=== PATIENT | female | born 1960 | race Caucasian/White ===

== ENCOUNTER 2020-02-24 12:43 | Outpatient (REF) | payer OTHER, SELFPAY ==
--- NOTE | 2020-02-24 | MM_ITS ---
EXAMINATION: BONE DENSITOMETRY CLINICAL INDICATION: Screening for osteoporosis. COMPARISON: None (current study represents initial baseline exam). TECHNIQUE: Using a [employer] DXA System (software version: 13.1) manufactured by [employer], dual-energy x-ray absorptiometry was performed of the lumbar spine and left hip. The images are of good technical quality. Summary results are attached. FINDINGS: AP SPINE L1-L4: BMD 0.853 g/cm2, Z-score -1.5, T-score -2.7, osteoporosis. LEFT FEMUR, NECK: BMD 0.792 g/cm2, Z-score -0.5, T-score -1.8, osteopenia. LEFT FEMUR, TOTAL: BMD 0.932 g/cm2, Z-score 0.4, T-score -0.6, normal. IDENTIFIED RISK FACTORS: Menopause, glucocorticoids (chronic). HISTORY OF FRACTURE: None listed. MEDICATIONS: Vitamin D. MM/XR DEXA axial skeleton IMPRESSION: 1. DIAGNOSIS: Osteoporosis based on the lowest T-score value of -2.7 in the lumbar spine applying World Health Organization criteria. 2. 10-YEAR FRACTURE RISK PREDICTION, FRAX: Major osteoporotic fracture (clinical spine, forearm, hip or shoulder) 7.8%. Hip fracture 1.0%. 3. Treatment Recommendations: NOF guidelines recommend consideration for treatment in postmenopausal women and men age 50 and older presenting with the following: -A hip or vertebral (clinical or morphometric) fracture. -T-score less than or equal to -2.5 at the femoral neck or spine after appropriate evaluation to exclude secondary causes. -Low bone mass at the hip or spine and a 10-year fracture probability by FRAX of greater than or equal to 3% for hip fracture or greater than or equal to 20% for major osteoporotic fracture based on the [place] adapted WHO algorithm. 4. Other Recommendations: All treatment decisions require clinical judgment and consideration of individual patient factors, including patient preferences, comorbidities, previous drug use, risk factors not captured in the FRAX model (e.g. frailty, falls, vitamin D deficiency, increased bone turnover, interval significant decline in bone density) and possible under or overestimation of fracture risk by FRAX. Additional medical evaluation for secondary cause of low bone mineral density may be appropriate. FUTURE SCAN RECOMMENDATION: People with diagnosed cases of osteoporosis or at high risk for fracture should have regular bone mineral density tests. For patients eligible for Medicare, routine testing is allowed once every 2 years. The testing frequency can be increased to one year for patients who have rapidly progressing disease, those who are receiving or discontinuing medical therapy to restore bone mass, or have additional risk factors.
--- NOTE | 2020-02-24 12:49 | MM_ITS ---
EXAMINATION: MM DIAGNOSTIC DIGITAL MAMMOGRAPHY, BILATERAL CLINICAL INFORMATION: Left breast invasive ductal cancer with positive sentinel lymph nodes, status post lumpectomy 04/10/2019. First breast imaging since surgery. Due for yearly. COMPARISON: Mammography: 04/10/2019, 03/28/2019, 03/25/2019, 03/08/2019, 03/02/2018, 07/29/2016, 02/03/2015 TECHNIQUE: Digital mammography is performed in craniocaudal and mediolateral oblique views along with computer-aided detection (CAD). Additional magnification left CC and magnification left LM views are obtained. FINDINGS: The breasts are heterogeneously dense, which may obscure small masses (ACR BI-RADS breast composition Category c). There are postsurgical changes left breast with minor reduced breast size, smooth uniform skin thickening, and surgical clips. The remainder of the left breast is similar to prior studies. No significant changes. The right breast again has nodularity central and outer aspect with bulky peripheral calcification suggesting degenerating fibroadenomas. No significant changes. Results are provided to the patient at time of visit by the technologist. MM/MM diagnostic mammo BI IMPRESSION: 1. Left: Post therapy changes. Otherwise no significant change. 2. Right: No significant changes from prior study. ASSESSMENT: BI-RADS 2: Benign RECOMMENDATION: Annual bilateral mammography. This patient's information was entered into a reminder system with a target due date for their next mammogram.
== END 2020-02-24 12:44 | disposition home or self-care (01) ==
LOC: HO.MAMMO 12:43
PROVIDERS: PCP Internal Medicine; Visit Provider Surgery
DX: C50.912 Malignant neoplasm of unspecified site of left female breast (principal); Z13.820 Encounter for screening for osteoporosis
CPT/HCPCS: 77066; 77080

== ENCOUNTER → 2020-05-11 09:09 | Outpatient (BNVA) | payer OTHER, SELFPAY | PROVIDERS: PCP Internal Medicine; Visit Provider Surgery ==

== ENCOUNTER → 2020-09-16 09:32 | Outpatient (BNVA) | payer OTHER, SELFPAY | PROVIDERS: PCP Internal Medicine; Referring Provider Internal Medicine; Visit Provider Surgery ==

== ENCOUNTER → 2020-12-07 10:07 | Outpatient (BNVA) | payer OTHER, SELFPAY | PROVIDERS: PCP Internal Medicine; Visit Provider Surgery ==

== ENCOUNTER 2021-02-25 12:19 | Outpatient (REF) | payer OTHER, SELFPAY ==
--- NOTE | ~2021-02-25 | MM_ITS ---
EXAMINATION: MM DIAGNOSTIC DIGITAL BREAST TOMOSYNTHESIS, BILATERAL CLINICAL INFORMATION: Invasive ductal cancer left breast status post lumpectomy 04/10/2019. Due for yearly. COMPARISON: Mammography: 02/24/2020, 04/10/2019, 03/28/2019, 03/25/2019, 03/08/2019, 03/02/2018 TECHNIQUE: Digital breast tomosynthesis is performed in both the craniocaudal and mediolateral oblique views along with computer-aided detection (CAD). Synthesized 2D images are generated from the tomosynthesis. Additional magnification left CC and magnification left LM views are obtained. FINDINGS: The breasts are heterogeneously dense, which may obscure small masses (ACR BI-RADS breast composition Category c). There are post therapy changes left breast with minor scarring and surgical clips. The smooth skin thickening is decreased from prior exam 02/24/2020. Neither breast shows significant mass or architectural abnormality or abnormal calcifications. The right breast again has fibroadenomatous with associated coarse calcification mid 12:00 and mid upper outer quadrants, respectively. No significant changes. Results are provided to the patient at time of visit by the technologist. MM/MM tomosynthesis diagnostic BI IMPRESSION: No mammographic evidence of malignancy. Post therapy changes left breast. ASSESSMENT: BI-RADS 2: Benign RECOMMENDATION: Annual bilateral mammography. This patient's information was entered into a reminder system with a target due date for their next mammogram.
== END 2021-02-25 12:20 | disposition home or self-care (01) ==
LOC: HO.MAMMO 12:19
PROVIDERS: PCP Internal Medicine; Visit Provider Surgery
DX: C50.912 Malignant neoplasm of unspecified site of left female breast (principal)
CPT/HCPCS: 77062; 77066

== ENCOUNTER → 2021-03-08 10:43 | Outpatient (BNVA) | payer OTHER, SELFPAY | PROVIDERS: PCP Internal Medicine; Referring Provider Internal Medicine; Visit Provider Surgery ==

== ENCOUNTER 2021-03-23 11:35 | Outpatient (REF) | payer OTHER, SELFPAY ==
[2021-03-23 12:19] LABS: Blood Urea Nitrogen 15 mg/dL (9-16); Estimated Glomerular Filt Rate > 60
== END 2021-03-23 11:36 | disposition home or self-care (01) ==
LOC: HO.MRI 11:35
PROVIDERS: PCP Internal Medicine; Visit Provider Surgery
DX: C50.912 Malignant neoplasm of unspecified site of left female breast (principal); R92.2 Inconclusive mammogram
CPT/HCPCS: 36415; 82565; 84520

== ENCOUNTER 2021-05-03 09:06 | Outpatient (REF) | payer OTHER, SELFPAY ==
[2021-05-03 09:30] LABS: MANUAL DIFF FLAG NO
[2021-05-03 09:41] LABS: Basophils Percent Auto 0.8 % (0-2); Eosinophils Absolute Auto 0.3 X10*3/uL (0.0-0.4); Eosinophils Percent Auto 5.5 % (0-4); Hematocrit 41.2 % (37.0-47.0); Hemoglobin 14.3 g/dl (12.0-16.0); Imm Gran Abs Auto 0.02 X10*3/uL (0.00-0.03); Imm Gran Pct Auto 0.4 % (0.0-0.4); Lymphocytes Absolute Auto 1.4 X10*3/uL (1.2-4.9); Lymphocytes Percent Auto 29.2 % (20-40); Mean Corpuscular HGB Conc 34.7 g/dl (31.0-35.0); Mean Corpuscular Hemoglobin 29.2 pg (27.0-33.0); Mean Corpuscular Volume 84.1 fL (80.0-98.0); Mean Platelet Volume 10.8 fL (9.4-12.3); Monocytes Absolute Auto 0.4 X10*3/uL (0.1-1.2); Monocytes Percent Auto 7.6 % (2-11); Neutrophils Absolute Auto 2.7 x10*3/uL (2.0-8.3); Neutrophils Percent Auto 56.5 % (45-73); Platelet Count 193 X10*3/uL (160-400); Red Cell Distribution Width 12.3 % (11.0-16.0); White Blood Count 4.8 X10*3/uL (4.8-10.8)
[2021-05-03 09:43] LABS: Estimated Average Glucose 189 mg/dL; Hemoglobin A1c % 8.2 %
[2021-05-03 10:15] LABS: Alanine Aminotransferase 45 U/L (0-31); Albumin Level 4.3 g/dL (3.5-5.0); Alkaline Phosphatase 105 U/L (39-117); Anion Gap 12 (12-20); Aspartate Amino Transferase 29 U/L (5-31); Bilirubin Total 1.4 mg/dL (0.0-1.0); Blood Urea Nitrogen 10 mg/dL (9-16); Calcium 10.2 mg/dL (8.4-10.2); Carbon Dioxide 29 mmol/L (22-29); Chloride 103 mmol/L (96-108); Cholesterol 173 mg/dL; Estimated Glomerular Filt Rate > 60; Glucose Fasting 185 mg/dL (60-99); HDL Cholesterol 47 mg/dL; LDL Cholesterol Calculated 100 mg/dl; Potassium 4.7 mmol/L (3.3-5.1); Sodium 139 mmol/L (135-145); Total Protein 6.6 g/dL (6.5-8.0); Triglycerides 134 mg/dL
[2021-05-03 10:41] LABS: Appearance Urine CLEAR; Color Urine YELLOW; Glucose Urine UA NEG (NEG); Leukocyte Esterase Urine NEG (NEG); Nitrite Urine NEG (NEG); PH 6.5 (5.0-8.0); Urine Blood NEG (NEG); Urine Ketones NEG (NEG); Urine Protein TRACE MG/DL (NEG-TRACE)
[2021-05-03 16:22] LABS: Creatinine Urine 217.25 mg/dL; Microalbum/Creatinine Ratio Ur 24.8 ug/mg cr
== END 2021-05-03 09:07 | disposition home or self-care (01) ==
LOC: HO.LAB 09:06
PROVIDERS: PCP Internal Medicine; Visit Provider Internal Medicine
DX: E11.9 Type 2 diabetes mellitus without complications (principal); I10 Essential (primary) hypertension; E78.00 Pure hypercholesterolemia, unspecified; Z86.16 Personal history of COVID-19
CPT/HCPCS: 36415; 80053; 80061; 81003; 82043; 83036; 85025

== ENCOUNTER → 2021-06-14 09:58 | Outpatient (BNVA) | payer OTHER, SELFPAY | PROVIDERS: PCP Internal Medicine; Referring Provider Internal Medicine; Visit Provider Surgery | DX: C50.912 Malignant neoplasm of unspecified site of left female breast (principal); R92.2 Inconclusive mammogram; Z79.899 Other long term (current) drug therapy | CPT/HCPCS: 99212 ==

== ENCOUNTER 2021-09-02 06:51 | Day surgery (SDC) | payer OTHER, SELFPAY ==
[2021-08-29 13:51] VITALS: BMI 26.2
--- NOTE | 2021-09-01 09:47 | HO.ANESPROP2 ---
Documented by User: Vanessa Hunt NP 09/01/21 09:48 HPI - Anesthesia Eval Consult details Narrative: 60yo F for Colonoscopy PMFSH Active Problems Active Problems: All Active Problems (Updated 08/29/21 @ 13:48 by Janel Hazel, JOSE) Dense breast tissue on mammogram (Acute) Invasive ductal carcinoma of left breast (Acute) Past Medical History Medical History Diabetes Hypertension Invasive ductal carcinoma of left breast Family History Family History Father HTN (hypertension) Diabetes mellitus Mother Diabetes mellitus HTN (hypertension) Surgical History Surgical History History of ERCP History of tubal ligation Hx of colonoscopy Hx of gallstones Hx of lumpectomy Social History Social History Patient Tobacco Use Status: Never used Tobacco Use of substances other than those prescribed or required for medical reasons: No Are you DNR?: No Advance Directives: No Advance Directives Information Provided: Yes Meds Allergies Allergy/AdvReac Type Severity Reaction Status Date / Time No Known Allergies Allergy Unverified 06/14/21 10:20 [No Known Allergies*] Home Medications Medication Instructions Recorded Confirmed Last Taken Type amlodipine 5 mg tablet 5 mg PO DAILY 05/11/20 09/02/21 09/02/21 History anastrozole 1 mg tablet 1 mg PO DAILY 05/11/20 08/29/21 Unknown History dulaglutide 1.5 mg/0.5 mL mg subcut 05/11/20 06/14/21 Unknown History subcutaneous pen injector glipizide 10 mg tablet, extended 10 mg PO BID 05/11/20 08/29/21 Unknown History release 24 hr lisinopril 20 mg tablet 20 mg PO DAILY 05/11/20 08/29/21 Unknown History Exam Exam Date and Time: September 01, 2021 0947 Height,Weight and Vital Signs: Height 5 ft 2.5 in Weight 66.224 kg Pertinent Lab Results Pertinent Lab Results: Laboratory Tests 05/03/21 05/03/21 09:29 09:29 WBC 4.8 Hgb 14.3 Hct 41.2 Plt Count 193 Sodium 139 Potassium 4.7 Chloride 103 Carbon Dioxide 29 BUN 10 Creatinine 0.80 Assessment and Plan Assessment Anesthesia Assessment: Chart Reviewed Documented by User: Mercedes Thakkar MD 09/02/21 09:03 [facility] Past Medical History Medical History Diabetes Hypertension Invasive ductal carcinoma of left breast Family History Family History Father HTN (hypertension) Diabetes mellitus Mother Diabetes mellitus HTN (hypertension) Family history of problems with anesthesia: No Surgical History Surgical History History of ERCP History of tubal ligation Hx of colonoscopy Hx of gallstones Hx of lumpectomy History of Problems with Anesthesia: No Social History Social History Patient Tobacco Use Status: Never used Tobacco Use of substances other than those prescribed or required for medical reasons: No Are you DNR?: No Advance Directives: No Advance Directives Information Provided: Yes Meds Allergies Allergy/AdvReac Type Severity Reaction Status Date / Time No Known Allergies Allergy Unverified 06/14/21 10:20 [No Known Allergies*] Home Medications Medication Instructions Recorded Confirmed Last Taken Type amlodipine 5 mg tablet 5 mg PO DAILY 05/11/20 09/02/21 09/02/21 History anastrozole 1 mg tablet 1 mg PO DAILY 05/11/20 08/29/21 Unknown History dulaglutide 1.5 mg/0.5 mL mg subcut 05/11/20 06/14/21 Unknown History subcutaneous pen injector glipizide 10 mg tablet, extended 10 mg PO BID 05/11/20 08/29/21 Unknown History release 24 hr lisinopril 20 mg tablet 20 mg PO DAILY 05/11/20 08/29/21 Unknown History Exam Airway Mallampati Class: II TM Dist: >3cm Neck ROM: Full Assessment and Plan Assessment Anesthesia Assessment: Anesthesia Plan Discussed Final Anesthetic Review Family History of Problems with Anesthesia: No History of Problems with Anesthesia: No NPO: Yes ASA Class: II Final Preanesthetic Review: No Changes in Pt Med Stat, Meds/Allgs Chart Reviewed, Consent Obtained/Reviewed and Anes Risks/Benef Reviewed Patient Risk: Low Procedure Risk: Low Anesthetic Plan Anesthetic Plan: MAC: Disposition: Standard PACU
[2021-09-02 08:22] VITALS: BP 144/77; PULSE 67; RESP 18; TEMP 36.4; O2SAT 99; BMI 26.1
[2021-09-02] MEDS: Lactated Ringers 1,000 ML 100 ML IVCONT (08:32)
[2021-09-02 08:51] LABS: Glucose, Whole Blood 184 mg/dL (60-115)
--- NOTE | 2021-09-02 09:19 | MHC.SHP ---
Pre-Procedural Eval Section A Date of Service: 09/02/21 Section B Chief Complaint: screening Details of Present Illness: see H&P no changes Relevant Family History (Specify if Yes): No Relevant Social History: None Present Medications: see Short Stay Collaborative assessment Medical History: No relevant PMH History of Previous Operations: No relevant previous surgery Allergies: Allergies Allergy/AdvReac Type Severity Reaction Status Date / Time No Known Allergies Allergy Unverified 06/14/21 10:20 [No Known Allergies*] Review of Systems Sugical H&P ROS: Negative: Constitution, Cardiovascular, Respiratory, Neurological, Psychiatric, Hem-Onc, Allergic/Immunologic, Gastrointestinal, Genitourinary, Musculoskeletal, Integumentary, Endocrine and Eyes/Ears/Nose/Throat Plan Diagnosis/Plan: Unchanged I have reviewed the history and physical and performed a pertinent physical examination on my patient. No changes have occurred unless specified.
[2021-09-02 10:04] VITALS: BP 85/37; PULSE 78; RESP 16; TEMP 36.4; O2SAT 97
[2021-09-02 10:09] VITALS: BP 89/47
--- NOTE | 2021-09-02 10:10 | P.BOP_ITS ---
Brief Operative Note Date of Service: 09/02/21 Pre-op diagnosis: screening Post-op diagnosis: same Procedure: colonoscopy Surgeon: Larry Mota Anesthesia: MAC Was an Hl7 Interface Developer used for this Procedure?: No Estimated blood loss (mL): 0 Pathology: other Condition: stable Disposition: PACU
[2021-09-02 10:14] VITALS: BP 97/51
[2021-09-02 10:19] VITALS: BP 107/53; PULSE 71; RESP 16; O2SAT 97
[2021-09-02 10:34] VITALS: BP 122/66; PULSE 63; RESP 16; TEMP 36.7; O2SAT 99
--- NOTE | 2021-09-02 16:54 | OP_ITS ---
SURGEON: Larry Mota MD INDICATIONS: Colon cancer screening. PREOPERATIVE DIAGNOSIS: POSTOPERATIVE DIAGNOSIS: PROCEDURE PERFORMED: Colonoscopy to the terminal ileum with snare polypectomy. ESTIMATED BLOOD LOSS: COMPLICATIONS: ANESTHESIA: ASSISTANTS: SPECIMENS: MEDICATIONS: Monitored anesthesia care. DESCRIPTION OF PROCEDURE: History and physical were performed. The risks and benefits of the procedure were explained to the patient. Informed consent was obtained. The patient was placed in left lateral decubitus position. A digital rectal exam was performed and was found to be normal. The Olympus pediatric video colonoscope was introduced into the rectum and advanced to the cecum without difficulty. The cecum was identified by transillumination, palpation, and identification of ileocecal valve. Examination was performed. The scope was removed. She tolerated the procedure well and was returned to recovery area in stable condition. FINDINGS: The terminal ileum was examined and appeared normal. The visualized colonic mucosa was within normal limits without evidence of masses or ulcers. Three polyps were identified and removed with a snare, all measured less than 10 mm. Two were at 20 cm. The 2nd polyp could not be recovered. The other one was at 70 cm. There was extensive diverticulosis. There was moderate amount of liquid and formed stool left limiting the sensitivity examination for detection of small polyps. Retroflexed examination showed small internal hemorrhoids. IMPRESSION: Colon polyps. RECOMMENDATION: Follow up the biopsy results. MD JASPER Tse/JUAN DANIEL / [id number]
== END 2021-09-02 11:10 | disposition home or self-care (01) ==
PROVIDERS: PCP Internal Medicine; Visit Provider Internal Medicine Gastroenterology
PROC: 0DJD8ZZ Inspection of Lower Intestinal Tract, Via Natural or Artificial Opening Endoscopic (ICD-10-PCS; CPT 45378; principal; 2021-09-02 09:00)
DX: Z12.11 Encounter for screening for malignant neoplasm of colon (principal); D12.4 Benign neoplasm of descending colon; K63.5 Polyp of colon; K57.30 Diverticulosis of large intestine without perforation or abscess without bleeding; K64.8 Other hemorrhoids; C50.912 Malignant neoplasm of unspecified site of left female breast; Z79.811 Long term (current) use of aromatase inhibitors; I10 Essential (primary) hypertension; E11.9 Type 2 diabetes mellitus without complications; Z79.84 Long term (current) use of oral hypoglycemic drugs; Z79.899 Other long term (current) drug therapy
CPT/HCPCS: 45385; 82947; 88305

== ENCOUNTER 2022-03-09 12:52 | Outpatient (REF) | payer OTHER, SELFPAY ==
--- NOTE | ~2022-03-09 | MM_ITS ---
EXAMINATION: MM DIAGNOSTIC DIGITAL BREAST TOMOSYNTHESIS, BILATERAL CLINICAL INFORMATION: Left lumpectomy for IDC 04/10/2019. Due for yearly. COMPARISON: Mammography: 02/25/2021, 02/24/2020, 03/28/2019, 03/08/2019 TECHNIQUE: Digital breast tomosynthesis is performed in both the craniocaudal and mediolateral oblique views along with computer-aided detection (CAD). Synthesized 2D images are generated from the tomosynthesis. Additional magnification left CC and magnification left ML views are provided. FINDINGS: The breasts are heterogeneously dense, which may obscure small masses (ACR BI-RADS breast composition Category c). Parenchymal pattern is similar to prior exams and there is no interval developing density or architectural abnormality or significant mass. Left breast has post therapy changes with scarring and surgical clips anterior medial breast. Right breast again has scattered stable asymmetries and benign grouped coarse calcifications central upper and upper outer quadrant. The axilla are unremarkable. No significant changes. Results are provided to the patient at time of visit by the technologist. MM/MM tomosynthesis diagnostic BI IMPRESSION: -No mammographic evidence of malignancy. -Post therapy changes left breast. ASSESSMENT: BI-RADS 2: Benign RECOMMENDATION: Routine annual mammography screening. This patient's information was entered into a reminder system with a target due date for their next mammogram.
== END 2022-03-09 12:53 | disposition home or self-care (01) ==
LOC: HO.MAMMO 12:52
PROVIDERS: PCP Internal Medicine; Visit Provider Internal Medicine
DX: C50.912 Malignant neoplasm of unspecified site of left female breast (principal)
CPT/HCPCS: 77062; 77066

== ENCOUNTER 2022-05-05 08:36 | Outpatient (REF) | payer OTHER, SELFPAY ==
[2022-05-05 09:05] LABS: Estimated Average Glucose 289 mg/dL; Hemoglobin A1c % 11.7 %
[2022-05-05 09:23] LABS: Alanine Aminotransferase 122 U/L (0-31); Albumin Level 4.3 g/dL (3.5-5.0); Alkaline Phosphatase 120 U/L (39-117); Anion Gap 15 (12-20); Aspartate Amino Transferase 84 U/L (5-31); Bilirubin Total 1.3 mg/dL (0.0-1.0); Blood Urea Nitrogen 12 mg/dL (9-16); Calcium 9.8 mg/dL (8.4-10.2); Carbon Dioxide 26 mmol/L (22-29); Chloride 103 mmol/L (96-108); Estimated Glomerular Filt Rate > 60; Glucose Random 310 mg/dL (60-115); Potassium 4.9 mmol/L (3.3-5.1); Sodium 139 mmol/L (135-145)
[2022-05-05 11:09] LABS: Creatinine Urine 93.78 mg/dL; Microalbum/Creatinine Ratio Ur 27.7 ug/mg cr
== END 2022-05-05 08:37 | disposition home or self-care (01) ==
LOC: HO.LAB 08:36
PROVIDERS: PCP Internal Medicine; Visit Provider Internal Medicine
DX: E11.9 Type 2 diabetes mellitus without complications (principal); I10 Essential (primary) hypertension
CPT/HCPCS: 36415; 80053; 82043; 83036

== ENCOUNTER 2022-07-26 07:45 | Outpatient (REF) | payer OTHER, SELFPAY ==
--- NOTE | ~2022-07-26 | US_ITS ---
EXAMINATION: US ABDOMEN COMPLETE CLINICAL INFORMATION: Elevated liver enzymes. COMPARISON: CT abdomen and pelvis 04/01/2019. Ultrasound renal 04/01/2019 and 03/29/2019. TECHNIQUE: Real-time imaging of the abdominal viscera. FINDINGS: PANCREAS: Normal. ABDOMINAL AORTA: There is mild distal aortic atherosclerosis. No evidence of aneurysm. INFERIOR VENA CAVA: Visualized portions are normal. LIVER: The liver is normal in size. The liver contour is normal. There is increased liver echogenicity. No focal hepatic lesion. There is no intrahepatic biliary duct dilatation seen. GALLBLADDER: Surgically absent. COMMON BILE DUCT: Normal in caliber measuring 0.8 cm in diameter. RIGHT KIDNEY: There are numerous echogenic stones with the largest stone in upper pole measuring 1.2 x 1.0 x 0.8 cm. There is no caliectasis or hydronephrosis. There is echogenic lesion in the upper midpole likely angiomyolipoma measuring 0.4 x 0.4 x 0.3 cm. The kidney measures 12.3 cm in maximum dimension. LEFT KIDNEY: There are numerous echogenic stones the largest in the upper pole measuring 0.4 x 0.4 x 0.3 cm. There is an anechoic lesion with calcification in lower pole measuring 1.4 x 1.4 x 1.2 cm suggestive of complex cyst. No hydronephrosis. The kidney measures 11.7 cm in maximum dimension. SPLEEN: Normal. The spleen measures 9.1 cm in maximum dimension. FREE FLUID: None. US/US abdomen complete IMPRESSION: Bilateral nonobstructive echogenic renal calculi. Bilateral small radiopaque calculi are seen on previous CT abdomen exam 04/01/2019. Complex anechoic cyst with calcification lower pole left kidney and angiomyolipoma upper midpole right kidney.
[2022-07-26 09:42] LABS: MANUAL DIFF FLAG NO
[2022-07-26 09:55] LABS: Basophils Absolute Auto 0.1 X10*3/uL (0.0-0.2); Eosinophils Absolute Auto 0.2 X10*3/uL (0.0-0.4); Eosinophils Percent Auto 3.6 % (0-4); Hematocrit 42.1 % (37.0-47.0); Hemoglobin 14.5 g/dl (12.0-16.0); Imm Gran Abs Auto 0.02 X10*3/uL (0.00-0.03); Imm Gran Pct Auto 0.4 % (0.0-0.4); Lymphocytes Absolute Auto 1.4 X10*3/uL (1.2-4.9); Lymphocytes Percent Auto 28.6 % (20-40); Mean Corpuscular HGB Conc 34.4 g/dl (31.0-35.0); Mean Corpuscular Hemoglobin 29.8 pg (27.0-33.0); Mean Corpuscular Volume 86.4 fL (80.0-98.0); Mean Platelet Volume 10.8 fL (9.4-12.3); Monocytes Absolute Auto 0.4 X10*3/uL (0.1-1.2); Monocytes Percent Auto 7.6 % (2-11); Neutrophils Absolute Auto 2.9 x10*3/uL (2.0-8.3); Neutrophils Percent Auto 58.8 % (45-73); Platelet Count 169 X10*3/uL (160-400); Red Blood Count 4.87 X10*6/uL (4.20-5.50); Red Cell Distribution Width 12.2 % (11.0-16.0)
[2022-07-26 10:18] LABS: Alanine Aminotransferase 129 U/L (0-31); Albumin Level 4.4 g/dL (3.5-5.0); Alkaline Phosphatase 123 U/L (39-117); Anion Gap 15 (12-20); Aspartate Amino Transferase 90 U/L (5-31); Bilirubin Total 1.8 mg/dL (0.0-1.0); Blood Urea Nitrogen 20 mg/dL (9-16); Calcium 9.9 mg/dL (8.4-10.2); Carbon Dioxide 26 mmol/L (22-29); Chloride 105 mmol/L (96-108); Estimated Glomerular Filt Rate > 60; Glucose Random 257 mg/dL (60-115); Potassium 4.2 mmol/L (3.3-5.1); Sodium 142 mmol/L (135-145)
[2022-07-26 10:32] LABS: Estimated Average Glucose 258 mg/dL; Hemoglobin A1c % 10.6 %
== END 2022-07-26 07:46 | disposition home or self-care (01) ==
LOC: HO.US 07:45
PROVIDERS: PCP Internal Medicine; Visit Provider Internal Medicine
DX: I10 Essential (primary) hypertension (principal); E11.9 Type 2 diabetes mellitus without complications; R74.01 Elevation of levels of liver transaminase levels
CPT/HCPCS: 36415; 76700; 80053; 83036; 85025

== ENCOUNTER → 2022-08-08 10:00 | Outpatient (BNVA) | payer OTHER, SELFPAY | PROVIDERS: PCP Internal Medicine; Referring Provider Internal Medicine; Visit Provider Surgery ==

== ENCOUNTER → 2022-08-14 10:36 | Outpatient (BNVA) | payer OTHER, SELFPAY | PROVIDERS: PCP Internal Medicine; Visit Provider Advanced Practice Midwife ==

== ENCOUNTER 2022-12-12 08:40 | Outpatient (REF) | payer OTHER, SELFPAY ==
[2022-12-12 10:27] LABS: Estimated Average Glucose 134 mg/dL; Hemoglobin A1c % 6.3 % (<6.0)
[2022-12-12 11:11] LABS: Alanine Aminotransferase 35 U/L (0-31); Albumin Level 4.3 g/dL (3.5-5.0); Alkaline Phosphatase 100 U/L (39-117); Anion Gap 13 (12-20); Aspartate Amino Transferase 24 U/L (5-31); Bilirubin Total 1.2 mg/dL (0.0-1.0); Blood Urea Nitrogen 11 mg/dL (9-16); Calcium 9.9 mg/dL (8.4-10.2); Carbon Dioxide 27 mmol/L (22-29); Chloride 106 mmol/L (96-108); Estimated Glomerular Filt Rate > 60; Glucose Random 133 mg/dL (60-115); Potassium 3.6 mmol/L (3.3-5.1); Sodium 142 mmol/L (135-145); Total Protein 7.3 g/dL (6.5-8.0)
== END 2022-12-12 08:41 | disposition home or self-care (01) ==
LOC: HO.LAB 08:40
PROVIDERS: PCP Internal Medicine; Visit Provider Internal Medicine
DX: E11.9 Type 2 diabetes mellitus without complications (principal); I10 Essential (primary) hypertension; R79.89 Other specified abnormal findings of blood chemistry
CPT/HCPCS: 36415; 80053; 83036

== ENCOUNTER 2023-03-15 13:12 | Outpatient (REF) | payer OTHER, SELFPAY ==
--- NOTE | ~2023-03-15 | MM_ITS ---
EXAMINATION: MM SCREENING DIGITAL BREAST TOMOSYNTHESIS, BILATERAL CLINICAL INFORMATION: Screening. Asymptomatic. The patient has a history of left breast cancer diagnosed in 2020. COMPARISON: Mammography: This study is compared with prior exams dating back to 2018. TECHNIQUE: Digital breast tomosynthesis is performed in both the craniocaudal and mediolateral oblique views along with computer-aided detection (CAD). Synthesized 2D images are generated from the tomosynthesis. FINDINGS: There are scattered areas of fibroglandular density (ACR BI-RADS breast composition Category b). There are no significant masses, abnormal calcifications, or other abnormalities. There are postsurgical changes in the medial aspect of the left breast. There are coarse, benign calcifications including upper outer quadrant of the right breast. MM/MM tomosynthesis screening BI IMPRESSION: No mammographic evidence of malignancy. ASSESSMENT: BI-RADS BI-RADS 1 - Negative RECOMMENDATION: Routine annual mammography screening. 1 year F/U This examination should not preclude the clinical evaluation of a suspicious palpable abnormality. This patient's information was entered into a reminder system with a target due date for their next mammogram.
== END 2023-03-15 13:13 | disposition home or self-care (01) ==
LOC: HO.MAMMO 13:12
PROVIDERS: PCP Internal Medicine; Visit Provider Internal Medicine
DX: Z12.31 Encounter for screening mammogram for malignant neoplasm of breast (principal)
CPT/HCPCS: 77063; 77067

== ENCOUNTER → 2023-03-15 13:30 | Outpatient (BNV) | payer OTHER, SELFPAY | PROVIDERS: PCP Internal Medicine; Visit Provider Radiology Diagnostic Radiology | DX: Z12.31 Encounter for screening mammogram for malignant neoplasm of breast (principal) | CPT/HCPCS: 77063; 77067 ==

== ENCOUNTER 2023-04-06 08:23 | Outpatient (REF) | payer OTHER, SELFPAY ==
[2023-04-06 08:45] LABS: MANUAL DIFF FLAG NO
[2023-04-06 08:50] LABS: Basophils Absolute Auto 0.1 X10*3/uL (0.0-0.2); Basophils Percent Auto 0.9 % (0-2); Eosinophils Absolute Auto 0.4 X10*3/uL (0.0-0.4); Eosinophils Percent Auto 6.6 % (0-4); Hematocrit 42.2 % (37.0-47.0); Hemoglobin 14.3 g/dl (12.0-16.0); Imm Gran Abs Auto 0.03 X10*3/uL (0.00-0.03); Imm Gran Pct Auto 0.5 % (0.0-0.4); Lymphocytes Absolute Auto 1.6 X10*3/uL (1.2-4.9); Mean Corpuscular HGB Conc 33.9 g/dl (31.0-35.0); Mean Corpuscular Hemoglobin 29.2 pg (27.0-33.0); Mean Corpuscular Volume 86.3 fL (80.0-98.0); Mean Platelet Volume 10.3 fL (9.4-12.3); Monocytes Absolute Auto 0.5 X10*3/uL (0.1-1.2); Monocytes Percent Auto 8.6 % (2-11); Neutrophils Percent Auto 54.4 % (45-73); Platelet Count 208 X10*3/uL (160-400); Red Blood Count 4.89 X10*6/uL (4.20-5.50); Red Cell Distribution Width 12.9 % (11.0-16.0); White Blood Count 5.5 X10*3/uL (4.8-10.8)
[2023-04-06 09:34] LABS: Alanine Aminotransferase 22 U/L (0-31); Albumin Level 4.2 g/dL (3.5-5.0); Alkaline Phosphatase 101 U/L (39-117); Anion Gap 12 (12-20); Aspartate Amino Transferase 16 U/L (5-31); Bilirubin Total 0.8 mg/dL (0.0-1.0); Blood Urea Nitrogen 16 mg/dL (9-16); Calcium 9.7 mg/dL (8.4-10.2); Carbon Dioxide 28 mmol/L (22-29); Chloride 105 mmol/L (96-108); Cholesterol 165 mg/dL (<200); Estimated Glomerular Filt Rate > 60; Glucose Fasting 130 mg/dL (60-99); HDL Cholesterol 49 mg/dL (>40); LDL Cholesterol Calculated 96 mg/dL (<100); Potassium 4.3 mmol/L (3.3-5.1); Sodium 141 mmol/L (135-145); Total Protein 7.4 g/dL (6.5-8.0); Triglycerides 101 mg/dL (<150)
[2023-04-06 11:28] LABS: Creatinine Urine 87.22 mg/dL; Microalbum/Creatinine Ratio Ur 9.1 ug/mg cr (<30)
== END 2023-04-06 08:24 | disposition home or self-care (01) ==
LOC: HO.LAB 08:23
PROVIDERS: PCP Internal Medicine; Visit Provider Internal Medicine
DX: I10 Essential (primary) hypertension (principal); E11.9 Type 2 diabetes mellitus without complications; R79.89 Other specified abnormal findings of blood chemistry
CPT/HCPCS: 36415; 80053; 80061; 82043; 82570; 85025

== ENCOUNTER 2023-04-06 09:13 | Outpatient (AMB) | payer OTHER, SELFPAY ==
--- NOTE | 2023-04-06 09:24 | A.OFFVIS_ITS ---
Intake Vital Signs 3 04/06/23 09:31 Height 5 ft 2.5 in Weight 142 lb BMI 25.6 BP 120/70 Blood Pressure Location Lt brachial Position Sitting Pulse 88 Intake Visit Reasons: overdue breast exam Intake Note: Patient is seen in office for office visit, breast exam. 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 She was diagnosed with infiltrating ductal carcinoma in March 2019 and underwent a left breast lumpectomy with axillary sentinel node biopsy on 04/10/2019, followed by re-excision of the inferior and lateral margins on 04/25/2019.? Pathology revealed a 1.5 cm grade 1 infiltrating ductal carcinoma, ER IN positive, HER2 Shital negative.? Two of 5 left axillary sentinel nodes were positive for metastatic disease.? The inferior lumpectomy resection margin was involved but was clear following re-excision with no residual carcinoma identified.? She was evaluated by Dr. Diego as well as [facility].? Her Oncotype DX score was 20. Although 2/5 axillary nodes were positive for metastatic disease, the addition of chemotherapy was not felt to likely provide much additional benefit.? She underwent radiation therapy followed by endocrine therapy.? She is taking anastrozole and reports no significant side effects with this medication.? She completed radiation therapy in July 2019 and tolerated it well.? Her most recent mammogram of 03/15/2023 revealed no mammographic evidence of malignancy (BI-RADS 1) and yearly mammogram is recommended.? Bilateral breast MRI performed at [facility] 04/22/2021 revealed no MRI evidence of breast malignancy bilaterally. The expected post therapeutic changes were noted in the left breast (BI-RADS 2: Benign ). She denies any new breast symptoms. Her previously scheduled MRI for August 2022 was canceled due to insurance denial. [facility] Medical History Diabetes Hypertension Invasive ductal carcinoma of left breast Surgical History History of tubal ligation Hx of colonoscopy History of ERCP Hx of gallstones Hx of lumpectomy Family History Father HTN (hypertension) Diabetes mellitus Mother Diabetes mellitus HTN (hypertension) Social History Alcohol intake: former Patient Tobacco Use Status: Never used Tobacco Sexual orientation: Straight/Heterosexual Gender identity: Female Review of Systems Const All systems reviewed & are unremarkable except as noted in HPI and below Card Denies chest pain, Denies rapid heart rate and Denies irregular heart rhythm Denies nipple discharge Skin/Breast Denies breast skin changes, Denies breast pain, Denies breast mass, Denies change in breast shape, Denies new lesions, Denies nipple discharge and Denies skin pain Segundo/Lymph Denies lymphadenopathy Physical Exam Const General: cooperative, healthy appearing, comfortable, no acute distress, well developed, alert and awake Orientation/consciousness: patient oriented x3 Neck Neck: Yes no lymphadenopathy, Yes trachea midline, Yes supple and Yes no JVD Chest Other: Left breast: No new skin change, no nipple retraction, no nipple discharge, no palpable mass, no enlarged lymph nodes. Well-healed incision in the upper inner quadrant with this circumareolar component. Minimal radiation changes noted in the skin breast tissue and no new palpable masses appreciated. Well-healed incision in the left axilla is identified. Right breast: No skin change, no nipple retraction, no nipple discharge, no palpable mass, no enlarged lymph nodes Chest/axillae images: 2 1. Well-healed incision, very faint with no palpable mass in the upper inner quadrant left breast. Resp Effort & Inspection: normal respiratory effort, no audible wheezes, no cough and no respiratory distress GI Inspection: Yes normal to inspection Skin General skin exam: no rashes or lesions noted Neuro General: patient oriented x3 Extrem General: Yes no clubbing, cyanosis or edema Assessment & Plan Assessment & Plan (1) Invasive ductal carcinoma of left breast: Code(s): C50.912 - Malignant neoplasm of unspecified site of left female breast (2) Dense breast tissue on mammogram: Code(s): R92.2 - Inconclusive mammogram Qualifiers: Mammographic dense breast tissue type: heterogeneous Laterality: b ilateral Qualified Code(s): R92.333 - Mammographic heterogeneous density, bilateral breasts Plan 62-year-old female patient status post lumpectomy and sentinel node biopsy (04/10/2019 and 04/25/2019) for a left breast 1.5 cm grade 1 infiltrating ductal carcinoma, ER/IN positive, HER2 Shital negative with 2 of 5 axillary lymph nodes with metastatic disease. Her Oncotype was 20 and no adjuvant chemotherapy was felt necessary. She underwent radiation therapy and is currently on anastrozole under the care of Dr. Diego. Her most recent mammogram in 03/15/2023 revealed no mammographic evidence of malignancy (BI-RADS 1). Examination today revealed no suspicious findings in either breast with a well-healed incision in the left breast. There is no evidence of recurrence disease this time. Patient will continue her anastrozole and her follow-up with Dr. Diego. She will follow-up in 6 months, sooner p.r.n.. Coding Level of Care Code Est Pt Level 3 (81320) Diagnoses Invasive ductal carcinoma of left breast C50.912 Heterogeneously dense tissue of both breasts on mammography R92.333 Mammographic dense breast tissue type: heterogeneous Laterality: bilateral
[2023-04-06 09:31] VITALS: BP 120/70; PULSE 88; BMI 25.6
== END 2023-04-06 09:41 | disposition home or self-care (01) ==
PROVIDERS: PCP Internal Medicine; Visit Provider Surgery
DX: C50.912 Malignant neoplasm of unspecified site of left female breast (principal); R92.333 Mammographic heterogeneous density, bilateral breasts
CPT/HCPCS: 99213

== ENCOUNTER 2023-08-22 08:06 | Outpatient (AMB) | payer OTHER, SELFPAY ==
--- NOTE | 2023-08-22 08:13 | A.OFFVIS_ITS ---
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 She is doing well with concerns: Intermittent occasional external irritation of unknown origin, using [id number] topical cream which helps. Attempting to eat a healthy diet with calcium and vitamin D and stays active with exercise. Currently sexually active. Denies any vaginal dryness or irritation. STI testing offered; she declines. Last pap smear; 09/13/2019 neg/neg. History of LEEP 1992. Last mammogram; 2022. Colonoscopy is UTD. Denies any family history of breast, ovarian or colon cancer. Personal history of breast cancer. [facility] Medical History Diabetes Hypertension Invasive ductal carcinoma of left breast Surgical History History of tubal ligation Hx of colonoscopy History of ERCP Hx of gallstones Hx of lumpectomy Family History Father HTN (hypertension) Diabetes mellitus Mother Diabetes mellitus HTN (hypertension) Social History Alcohol intake: former Patient Tobacco Use Status: Never used Tobacco Sexual orientation: Straight/Heterosexual Gender identity: Female Female Reproductive History Menstrual Age of Menarche: 13 control method: permanent sterilization Total pregnancies: 3 Full term: 2 Number of Living Children: 3 Ab spontaneous: 1 Multiple births: 1 Date of last pap smear: 09/25/19 (negative) History of abnormal pap smear: Yes (1992 CIN1) Date of Mammogram: 03/15/23 Review of Systems Const All systems reviewed & are unremarkable except as noted in HPI and below Reports as per HPI Eyes Reports no additional complaints ENT Reports no additional complaints Card Reports no additional complaints Resp Reports no additional complaints GI Reports as per HPI and Reports no additional complaints Reports as per HPI Musc Reports no additional complaints Skin/Breast Reports as per HPI Neuro Reports no additional complaints Psych Reports no additional complaints Endo Reports no additional complaints Segundo/Lymph Reports no additional complaints Aller/Immun Reports no additional complaints Physical Exam Vital Signs: Last Vital Signs BP 122/76 08/22/23 08:15 BMI result Body Mass Index 25.2 Const General: cooperative, healthy appearing, no acute distress, well developed and alert Orientation/consciousness: patient oriented x3 HEENT Head: Yes normal to inspection Eyes General: appearance normal, both eyes and all related structures Neck Neck: Yes normal visual inspection Thyroid: Thyroid normal Chest Other: Left breast scar Chest palpation & inspection: normal inspection of the chest and other (no puckering, dimpling, peau de orange, retraction, discharge, masses) Breast/axilla inspection: normal inspection of the breasts Breast/axilla palpation: normal palpation of the breasts Resp Effort & Inspection: normal respiratory effort GI Inspection: Yes normal to inspection Palpation (GI): Soft to palpation Rectal Exam - Female: deferred General: Yes bladder normal to palpation External Female Exam: normal external appearance and normal appearance of the urethra Speculum Exam - Vagina: normal appearance of the vagina, normal palpation, normal vaginal discharge and vagina atrophic Speculum Exam - Cervix: normal appearance of the cervix and normal palpation Bimanual exam- vagina & uterus: normal bimanual exam, normal palpation, uterine size normal, bladder normal to palpation, normal palpation and non-tender Bimanual Exam- Adnexa, other: no masses Skin General skin exam: no rashes or lesions noted Rashes: no rashes Neuro General: patient oriented x3 Cognition (Neuro): normal cognition Extrem General: Yes normal to inspection Psych Attitude: cooperative Thought process: Normal thought process present Assessment & Plan Assessment & Plan (1) Encounter for well woman exam with routine gynecological exam: Code(s): Z01.419 - Encounter for gynecological examination (general) (routine) without abnormal findings Category: Medical Plan: Discussed: Current recommendations for pap smears per ASCCP guidelines. Breast awareness, periodic self breast exams and yearly mammogram. Maintain a healthy lifestyle, well balanced diet including Calcium 1,200 mg and Vitamin D 600 IU daily, and routine exercise. Vulva concerns, self-help measures, if persistent follow up for evaluation in office. Continue use vaginal lubricants and add Replens if needed. Contact the office with any postmenopausal bleeding. Patient verbalizes understanding and agrees to the plan of care. She was given opportunity to ask questions and all questions were answered to the best of my ability. RTO in 1 year for annual skimmer reverberatory exam. This note is constructed using voice recognition software. While every effort has been made to ensure accuracy, chro errors may have been included. Coding Level of Care Code Est Pt Prev Care 40-64y(52909) Diagnoses Encounter for well woman exam with routine gynecological exam Z01.419
[2023-08-22 08:15] VITALS: BP 122/76; BMI 25.2
== END 2023-08-22 08:51 | disposition home or self-care (01) ==
PROVIDERS: PCP Internal Medicine; Visit Provider Advanced Practice Midwife
DX: Z01.419 Encounter for gynecological examination (general) (routine) without abnormal findings (principal)
CPT/HCPCS: 99396

== ENCOUNTER → 2023-08-22 08:06 | Outpatient (BNVA) | payer OTHER, SELFPAY | PROVIDERS: PCP Internal Medicine; Visit Provider Advanced Practice Midwife ==

== ENCOUNTER 2023-09-20 09:01 | Outpatient (REF) | payer OTHER, SELFPAY ==
[2023-09-20 09:11] LABS: MANUAL DIFF FLAG NO
[2023-09-20 09:45] LABS: Basophils Percent Auto 0.8 % (0-2); Eosinophils Absolute Auto 0.2 X10*3/uL (0.0-0.4); Eosinophils Percent Auto 3.9 % (0-4); Hematocrit 42.4 % (37.0-47.0); Hemoglobin 14.6 g/dl (12.0-16.0); Imm Gran Abs Auto 0.01 X10*3/uL (0.00-0.03); Imm Gran Pct Auto 0.2 % (0.0-0.4); Lymphocytes Absolute Auto 1.3 X10*3/uL (1.2-4.9); Mean Corpuscular HGB Conc 34.4 g/dl (31.0-35.0); Mean Corpuscular Hemoglobin 29.7 pg (27.0-33.0); Mean Corpuscular Volume 86.4 fL (80.0-98.0); Mean Platelet Volume 11.3 fL (9.4-12.3); Monocytes Absolute Auto 0.4 X10*3/uL (0.1-1.2); Monocytes Percent Auto 7.5 % (2-11); Neutrophils Percent Auto 60.6 % (45-73); Platelet Count 171 X10*3/uL (160-400); Red Blood Count 4.91 X10*6/uL (4.20-5.50); White Blood Count 4.9 X10*3/uL (4.8-10.8)
[2023-09-20 09:59] LABS: Estimated Average Glucose 163 mg/dL; Hemoglobin A1c % 7.3 % (<6.0)
[2023-09-20 10:23] LABS: Alanine Aminotransferase 26 U/L (0-31); Albumin Level 4.4 g/dL (3.5-5.0); Alkaline Phosphatase 121 U/L (39-117); Anion Gap 13 (12-20); Aspartate Amino Transferase 22 U/L (5-31); Bilirubin Total 1.6 mg/dL (0.0-1.0); Blood Urea Nitrogen 15 mg/dL (9-16); Calcium 9.7 mg/dL (8.4-10.2); Carbon Dioxide 27 mmol/L (22-29); Chloride 105 mmol/L (96-108); Estimated Glomerular Filt Rate > 60; Glucose Random 163 mg/dL (60-115); Sodium 141 mmol/L (135-145); Total Protein 7.3 g/dL (6.5-8.0)
== END 2023-09-20 09:02 | disposition home or self-care (01) ==
LOC: HO.LAB 09:01
PROVIDERS: PCP Internal Medicine; Visit Provider Internal Medicine
DX: E11.9 Type 2 diabetes mellitus without complications (principal); I10 Essential (primary) hypertension; R94.5 Abnormal results of liver function studies
CPT/HCPCS: 36415; 80053; 83036; 85025

== ENCOUNTER 2023-09-28 08:44 | Outpatient (AMB) | payer OTHER, SELFPAY ==
[2023-09-28 08:45] VITALS: BP 137/66; PULSE 72; BMI 25.6
--- NOTE | 2023-09-28 08:45 | A.OFFVIS_ITS ---
Vital Signs 3 09/28/23 08:45 Height 5 ft 2.5 in Weight 142 lb BMI 25.6 BP 137/66 Blood Pressure Location Rt brachial Position Sitting Pulse 72 Intake Visit Reasons: 6 month f/u breast exam Intake Note: Patient is here for a six month follow-up breast examination. Patient c/o; reports no breast complaints. 03/15/2023-MM Screening Surgical Coordinator Required: No Assistant Family Teacher: Assistant Family Teacher Present (Juanita-RMA) Accompanied by: Self / Same As Patient Allergies No Known Allergies [No Known Allergies*] Allergy (Verified 09/28/23 08:53) Medication List - Last Reconciled 09/28/23 by Evan Urban MD amlodipine 5 mg PO DAILY anastrozole 1 mg PO DAILY dulaglutide mg subcut empagliflozin (Jardiance) 10 mg PO DAILY glipizide ER 10 mg PO BID lisinopril 20 mg PO DAILY HPI Comments Details: 63-year-old female patient, former patient of Dr. Alcantar, seen today for a follow-up breast examination.? She was diagnosed with infiltrating ductal carcinoma in March 2019 and underwent a left breast lumpectomy with axillary sentinel node biopsy on 04/10/2019, followed by re-excision of the inferior and lateral margins on 04/25/2019.? Pathology revealed a 1.5 cm grade 1 infiltrating ductal carcinoma, ER [place] positive, HER2 Shital negative.? Two of 5 left axillary sentinel nodes were positive for metastatic disease.? The inferior lumpectomy resection margin was involved but was clear following re-excision with no residual carcinoma identified.? She was evaluated by Dr. Diego as well as [facility].? Her Oncotype DX score was 20. Although 2/5 axillary nodes were positive for metastatic disease, the addition of chemotherapy was not felt to likely provide much additional benefit.? She underwent radiation therapy followed by endocrine therapy.? She continues to take anastrozole and reports no significant side effects with this medication.? She completed radiation therapy in July 2019 and tolerated it well.? Her most recent mammogram of 03/15/2023 revealed no mammographic evidence of malignancy (BI-RADS 1) and yearly mammogram is recommended.? Bilateral breast MRI performed at [facility] 04/22/2021 revealed no MRI evidence of breast malignancy bilaterally. The expected post therapeutic changes were noted in the left breast (BI-RADS 2: Benign ). She is scheduled for a yearly mammogram on 03/17/2024. She denies any new breast symptoms. [facility] Medical History Diabetes Hypertension Invasive ductal carcinoma of left breast Surgical History History of tubal ligation Hx of colonoscopy History of ERCP Hx of gallstones Hx of lumpectomy Family History Father HTN (hypertension) Diabetes mellitus Mother Diabetes mellitus HTN (hypertension) Social History Alcohol intake: former Patient Tobacco Use Status: Never used Tobacco Sexual orientation: Straight/Heterosexual Gender identity: Female Female Reproductive History Menstrual Age of Menarche: 13 Review of Systems Const All systems reviewed & are unremarkable except as noted in HPI and below Card Denies chest pain, Denies rapid heart rate and Denies irregular heart rhythm Denies nipple discharge Skin/Breast Denies breast skin changes, Denies breast pain, Denies breast mass, Denies change in breast shape, Denies new lesions, Denies nipple discharge and Denies skin pain Segundo/Lymph Denies lymphadenopathy Physical Exam Vital Signs: Last Vital Signs Pulse 72 09/28/23 08:45 BP 137/66 09/28/23 08:45 BMI result Body Mass Index 25.6 Const General: cooperative, healthy appearing, comfortable, no acute distress, well developed, alert and awake Orientation/consciousness: patient oriented x3 Neck Neck: Yes no lymphadenopathy, Yes trachea midline, Yes supple and Yes no JVD Chest Other: Left breast: No new skin change, no nipple retraction, no nipple discharge, no palpable mass, no enlarged lymph nodes. Well-healed incision in the upper inner quadrant with this circumareolar component. Minimal radiation changes noted in the skin breast tissue and no new palpable masses appreciated. Well-healed incision in the left axilla is identified. Right breast: No skin change, no nipple retraction, no nipple discharge, no palpable mass, no enlarged lymph nodes Chest/axillae images: 2 1. Incision left breast Resp Effort & Inspection: normal respiratory effort, no audible wheezes, no cough and no respiratory distress GI Inspection: Yes normal to inspection Skin General skin exam: no rashes or lesions noted Neuro General: patient oriented x3 Extrem General: Yes no clubbing, cyanosis or edema Assessment & Plan Assessment & Plan (1) Invasive ductal carcinoma of left breast: Code(s): C50.912 - Malignant neoplasm of unspecified site of left female breast Category: Medical (2) Dense breast tissue on mammogram: Code(s): R92.2 - Inconclusive mammogram Category: Medical Qualifiers: Mammographic dense breast tissue type: heterogeneous Laterality: b ilateral Qualified Code(s): R92.333 - Mammographic heterogeneous density, bilateral breasts Plan 63-year-old female patient status post lumpectomy and sentinel node biopsy (04/10/2019 and 04/25/2019) for a left breast 1.5 cm grade 1 infiltrating ductal carcinoma, ER/LA positive, HER2 Shital negative with 2 of 5 axillary lymph nodes with metastatic disease. Her Oncotype was 20 and no adjuvant chemotherapy was felt necessary. She underwent radiation therapy and is currently on anastrozole under the care of Dr. Diego. Her most recent mammogram in 03/15/2023 revealed no mammographic evidence of malignancy (BI-RADS 1). Examination today revealed no suspicious findings in either breast with a well-healed incision in the left breast. There is no evidence of recurrence disease this time. Patient will continue her anastrozole and her follow-up with Dr. Diego. She will follow-up in 6 months, sooner p.r.n.. She is scheduled for follow-up mammogram on 03/17/2024. Coding Level of Care Code Est Pt Level 3 (37235) Diagnoses Invasive ductal carcinoma of left breast C50.912 Heterogeneously dense tissue of both breasts on mammography R92.333 Mammographic dense breast tissue type: heterogeneous Laterality: bilateral
== END 2023-09-28 09:10 | disposition home or self-care (01) ==
PROVIDERS: PCP Internal Medicine; Visit Provider Surgery
DX: C50.912 Malignant neoplasm of unspecified site of left female breast (principal); R92.333 Mammographic heterogeneous density, bilateral breasts
CPT/HCPCS: 99213

== ENCOUNTER → 2023-09-28 08:44 | Outpatient (BNVA) | payer OTHER, SELFPAY | PROVIDERS: PCP Internal Medicine; Visit Provider Surgery ==

== ENCOUNTER 2024-02-06 12:12 | Outpatient (REF) | payer OTHER, SELFPAY ==
[2024-02-06 12:42] LABS: MANUAL DIFF FLAG NO
[2024-02-06 12:54] LABS: Basophils Percent Auto 0.7 % (0-2); Eosinophils Absolute Auto 0.1 X10*3/uL (0.0-0.4); Eosinophils Percent Auto 2.5 % (0-4); Hematocrit 42.6 % (37.0-47.0); Hemoglobin 14.7 g/dl (12.0-16.0); Imm Gran Abs Auto 0.02 X10*3/uL (0.00-0.03); Imm Gran Pct Auto 0.4 % (0.0-0.4); Lymphocytes Absolute Auto 1.4 X10*3/uL (1.2-4.9); Lymphocytes Percent Auto 24.1 % (20-40); Mean Corpuscular HGB Conc 34.5 g/dl (31.0-35.0); Mean Corpuscular Hemoglobin 29.6 pg (27.0-33.0); Mean Corpuscular Volume 85.7 fL (80.0-98.0); Mean Platelet Volume 10.7 fL (9.4-12.3); Monocytes Absolute Auto 0.5 X10*3/uL (0.1-1.2); Monocytes Percent Auto 7.9 % (2-11); Neutrophils Absolute Auto 3.7 x10*3/uL (2.0-8.3); Neutrophils Percent Auto 64.4 % (45-73); Platelet Count 179 X10*3/uL (160-400); Red Blood Count 4.97 X10*6/uL (4.20-5.50); Red Cell Distribution Width 13.1 % (11.0-16.0); White Blood Count 5.7 X10*3/uL (4.8-10.8)
[2024-02-06 13:00] LABS: Estimated Average Glucose 157 mg/dL; Hemoglobin A1C 206.0471 umol/L; Hemoglobin A1c % 7.1 % (<6.0); Total Hemoglobin (HGBA1C) 3812.6295 umol/L
[2024-02-06 13:34] LABS: Alanine Aminotransferase 33 U/L (0-31); Albumin Level 4.4 g/dL (3.5-5.0); Alkaline Phosphatase 114 U/L (39-117); Anion Gap 12 (12-20); Aspartate Amino Transferase 25 U/L (5-31); Bilirubin Total 1.2 mg/dL (0.0-1.0); Blood Urea Nitrogen 15 mg/dL (9-16); Calcium 10.2 mg/dL (8.4-10.2); Carbon Dioxide 24 mmol/L (22-29); Chloride 107 mmol/L (96-108); Cholesterol 170 mg/dL (<200); Estimated Glomerular Filt Rate > 60; Glucose Random 127 mg/dL (60-115); HDL Cholesterol 52 mg/dL (>40); LDL Cholesterol Calculated 99 mg/dL (<100); Potassium 3.6 mmol/L (3.3-5.1); Sodium 139 mmol/L (135-145); Total Protein 7.3 g/dL (6.5-8.0); Triglycerides 96 mg/dL (<150)
[2024-02-06 13:52] LABS: Creatinine Urine 352.24 mg/dL; Microalbum/Creatinine Ratio Ur 26.9 ug/mg cr (<30)
== END 2024-02-06 12:13 | disposition home or self-care (01) ==
LOC: HO.LAB 12:12
PROVIDERS: PCP Internal Medicine; Visit Provider Internal Medicine
DX: E11.9 Type 2 diabetes mellitus without complications (principal); I10 Essential (primary) hypertension
CPT/HCPCS: 36415; 80053; 80061; 82043; 82570; 83036; 85025

== ENCOUNTER 2024-03-17 12:34 | Outpatient (REF) | payer OTHER, SELFPAY | END 2024-03-17 12:35 | disposition home or self-care (01) | LOC: HO.MAMMO 12:34 | PROVIDERS: PCP Internal Medicine; Visit Provider Internal Medicine | DX: Z12.31 Encounter for screening mammogram for malignant neoplasm of breast (principal) | CPT/HCPCS: 77063; 77067 ==

== ENCOUNTER → 2024-03-17 13:00 | Outpatient (BNV) | payer OTHER, SELFPAY | PROVIDERS: PCP Internal Medicine; Visit Provider Internal Medicine | DX: Z12.31 Encounter for screening mammogram for malignant neoplasm of breast (principal) | CPT/HCPCS: 77063; 77067 ==

== ENCOUNTER 2024-04-01 08:44 | Outpatient (AMB) | payer OTHER, SELFPAY ==
--- NOTE | 2024-04-01 08:54 | A.OFFVIS_ITS ---
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 Alcantar, seen today for a follow-up breast examination.? She was diagnosed with infiltrating ductal carcinoma in March 2019 and underwent a left breast lumpectomy with axillary sentinel node biopsy on 04/10/2019, followed by re-excision of the inferior and lateral margins on 04/25/2019.? Pathology revealed a 1.5 cm grade 1 infiltrating ductal carcinoma, ER [place] positive, HER2 Shital negative.? Two of 5 left axillary sentinel nodes were positive for metastatic disease.? The inferior lumpectomy resection margin was involved but was clear following re-excision with no residual carcinoma identified.? She was evaluated by Dr. Diego as well as [facility].? Her Oncotype DX score was 20. Although 2/5 axillary nodes were positive for metastatic disease, the addition of chemotherapy was not felt to likely provide much additional benefit.? She underwent radiation therapy followed by endocrine therapy. She was treated with anastrozole. She completed radiation therapy in July 2019 and tolerated it well.? Her most recent mammogram dated 03/17/2024 revealed no mammographic evidence of malignancy (BI-RADS 2). She generally feels well and denies any ongoing breast symptoms. [facility] Medical History Diabetes Hypertension Invasive ductal carcinoma of left breast Surgical History History of tubal ligation Hx of colonoscopy History of ERCP Hx of gallstones Hx of lumpectomy Family History Father HTN (hypertension) Diabetes mellitus Mother Diabetes mellitus HTN (hypertension) Social History Alcohol intake: former Patient Tobacco Use Status: Never used Tobacco Sexual orientation: Straight/Heterosexual Gender identity: Female Female Reproductive History Menstrual Age of Menarche: 13 Review of Systems Const All systems reviewed & are unremarkable except as noted in HPI and below Card Denies chest pain, Denies rapid heart rate and Denies irregular heart rhythm Denies nipple discharge Skin/Breast Denies breast skin changes, Denies breast pain, Denies breast mass, Denies change in breast shape, Denies new lesions, Denies nipple discharge and Denies skin pain Segundo/Lymph Denies lymphadenopathy Physical Exam Const General: cooperative, healthy appearing, comfortable, no acute distress, well developed, alert and awake Orientation/consciousness: patient oriented x3 Neck Neck: Yes no lymphadenopathy, Yes trachea midline, Yes supple and Yes no JVD Chest Other: Left breast: No new skin change, no nipple retraction, no nipple discharge, no palpable mass, no enlarged lymph nodes. Well-healed incision in the upper inner quadrant with this circumareolar component. Minimal radiation changes noted in the skin breast tissue and no new palpable masses appreciated. Well-healed incision in the left axilla is identified. Right breast: No skin change, no nipple retraction, no nipple discharge, no palpable mass, no enlarged lymph nodes Chest/axillae images: 2 1. Resp Effort & Inspection: normal respiratory effort, no audible wheezes, no cough and no respiratory distress GI Inspection: Yes normal to inspection Skin General skin exam: no rashes or lesions noted Neuro Other: Mobility Assessment: 1. 3 meter assessment time (seconds) 5 2. Gait observations: Normal balance and gait General: patient oriented x3 Extrem General: Yes no clubbing, cyanosis or edema Assessment & Plan Assessment & Plan (1) Invasive ductal carcinoma of left breast: Code(s): C50.912 - Malignant neoplasm of unspecified site of left female breast Category: Medical (2) Dense breast tissue on mammogram: Code(s): R92.2 - Inconclusive mammogram Category: Medical Qualifiers: Mammographic dense breast tissue type: heterogeneous Laterality: b ilateral Qualified Code(s): R92.333 - Mammographic heterogeneous density, bilateral breasts Plan 63-year-old female patient status post lumpectomy and sentinel node biopsy (04/10/2019 and 04/25/2019) for a left breast 1.5 cm grade 1 infiltrating ductal carcinoma, ER/[place] positive, HER2 Shital negative with 2 of 5 axillary lymph nodes with metastatic disease. Her Oncotype was 20 and no adjuvant chemotherapy was felt necessary. She underwent radiation therapy and is currently on anastrozole under the care of Dr. Diego. Her most recent mammogram in 03/17/2024 revealed no mammographic evidence of malignancy (BI-RADS 2). Examination today revealed no suspicious findings in either breast with a well-healed incision in the left breast. There is no evidence of recurrence disease this time. Patient will check with Dr. Diego regarding the need for continued anastrozole. She will be due for a follow-up mammogram in 1 year and will return at that time for follow- up examination. She is welcome to call sooner for any new concerns. Coding Level of Care Code Est Pt Level 3 (11840) Complex EM visit Add On G2211 Diagnoses Invasive ductal carcinoma of left breast C50.912 Heterogeneously dense tissue of both breasts on mammography R92.333 Mammographic dense breast tissue type: heterogeneous Laterality: bilateral
== END 2024-04-01 09:09 | disposition home or self-care (01) ==
PROVIDERS: PCP Internal Medicine; Visit Provider Surgery
DX: C50.912 Malignant neoplasm of unspecified site of left female breast (principal); R92.333 Mammographic heterogeneous density, bilateral breasts
CPT/HCPCS: 99213

== ENCOUNTER → 2024-04-01 08:44 | Outpatient (BNVA) | payer OTHER, SELFPAY | PROVIDERS: PCP Internal Medicine; Visit Provider Surgery ==

== ENCOUNTER 2024-08-14 09:30 | Outpatient (REF) | payer OTHER, SELFPAY ==
[2024-08-14 11:44] LABS: Estimated Average Glucose 194 mg/dL; Hemoglobin A1c % 8.4 % (<6.0)
[2024-08-14 13:18] LABS: Alanine Aminotransferase 57 U/L (0-31); Albumin Level 4.5 g/dL (3.5-5.0); Alkaline Phosphatase 130 U/L (39-117); Anion Gap 11 (12-20); Aspartate Amino Transferase 37 U/L (5-31); Bilirubin Total 1.4 mg/dL (0.0-1.0); Blood Urea Nitrogen 13 mg/dL (9-16); Calcium 9.7 mg/dL (8.4-10.2); Carbon Dioxide 28 mmol/L (22-29); Chloride 106 mmol/L (96-108); Estimated Glomerular Filt Rate > 60; Glucose Random 251 mg/dL (60-115); Sodium 141 mmol/L (135-145); Total Protein 7.3 g/dL (6.5-8.0)
== END 2024-08-14 09:31 | disposition home or self-care (01) ==
LOC: HO.LAB 09:30
PROVIDERS: PCP Internal Medicine; Visit Provider Internal Medicine
DX: K52.9 Noninfective gastroenteritis and colitis, unspecified (principal); R19.8 Other specified symptoms and signs involving the digestive system and abdomen; E11.65 Type 2 diabetes mellitus with hyperglycemia; I10 Essential (primary) hypertension
CPT/HCPCS: 36415; 80053; 83036; 84443; 96127

== ENCOUNTER 2024-08-14 09:30 | Outpatient (AMB) | payer OTHER, SELFPAY ==
--- NOTE | 2024-08-14 09:23 | MHC.PC.OV ---
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: No Accompanied by: Self / Same As Patient Allergies No Known Allergies [No Known Allergies*] Allergy (Verified 08/14/24 09:24) Tobacco use date assessed: 08/14/24 Dental Screening Dental Screen Date: 08/14/24 Did you have a dental visit in the last 12 months?: Yes Did you have a dental problem in the last 6 months where you did not have access to dental care?: No HPI HPI Comments History of Present Illness Details The patient is a 63 year old female with a past medical history of diabetes, hypertension, breast cancer, kidney stones, OA hands, presenting for follow up DM: On glipizide, trulicity 1.5mg weekly. Did not tolerate mounjaro, jardiance. Last A1C 7.1%. She is due for repeat CV: on lisinopril, norvasc. Blood pressure controlled. Breast cancer: UTD with surgery. In May bowel changes. Went to [place], [place] but she believes the symptoms predated travel. She has frequent, urgent looser stools. Worse with eating, even bland food. No abnormal weight loss. Mammo 02/2024 Colonoscopy 08/2022 ROS see HPI PHYSICAL EXAM: GENERAL: Alert and oriented x 3. NAD EYES: EOMI. Anicteric. HENT: Moist mucous membranes. No scleral icterus. No cervical lymphadenopathy. LUNGS: Clear to auscultation bilaterally. CARDIOVASCULAR: Regular rate and rhythm. No murmur. No JVD. ABDOMEN: Soft, non-tender +bs EXTREMITIES: No edema. Non-tender. SKIN: No rashes or lesions. Warm. NEUROLOGIC: No focal neurological deficits. CN II-XII grossly intact PSYCHIATRIC: Cooperative. Appropriate mood and affect [facility] Medical History Diabetes Hypertension Invasive ductal carcinoma of left breast Surgical History History of tubal ligation Hx of colonoscopy (~06/30/15) History of ERCP Hx of gallstones Hx of lumpectomy Family History Father HTN (hypertension) Diabetes mellitus Mother Diabetes mellitus HTN (hypertension) Social History Housing: House Alcohol intake: former Patient Tobacco Use Status: Never used Tobacco e-Cigarette/Vaping Use: Never Used Current occupational status: retired Sexual orientation: Straight/Heterosexual Gender identity: Female Cognitive needs: No Hearing needs: No Vision needs: Yes (rx glasses) Female Reproductive History Menstrual Age of Menarche: 13 Questionnaire PHQ-9 Over the last 2 weeks, how often have you been bothered by any of the following problems? 1. Little interest or pleasure in doing things: not at all 2. Feeling down, depressed, or hopeless: not at all 3. Trouble falling or staying asleep, or sleeping too much: not at all 4. Feeling tired or having little energy: not at all 5. Poor appetite or overeating: not at all 6. Feeling bad about yourself - or that you are a failure or have let yourself or your family down: not at all 7. Trouble concentrating on things, such as reading the newspaper or watching television: not at all 8. Moving or speaking so slowly that other people could have noticed. Or the opposite - being so fidgety or restless that you have been moving around a lot more than usual: not at all 9. Thoughts that you would be better off or of hurting yourself in some way: not at all Total score: 0 Depression Screening Interpretation: Negative Depression Screening Done: Yes [id number] - PHQ-9 Billing: Yes Source: Developed by Drs. Felice Kingston, Irene Mack, Benjamin Sofia and colleagues, with an educational tigist from [employer]. Thrive Questionnaire Date Thrive assessed: 08/14/24 I am a: Patient Within the past 12 months, did the food you bought not last and you didn't have the money to get more?: Never true Within the past 12 months, did you worry whether your food would run out before you got money to buy more?: Never true Do you have trouble paying for medicines?: No Do you have trouble getting transportation to medical appointments?: No Do you have trouble paying your heating and electricity bill?: No Do you have trouble taking care of your child, family member or friend?: No Do you have trouble with day-to-day activities such as bathing, preparing meals, shopping, managing finances, etc.?: No Are you currently unemployed and looking for a job?: No Are you interested in more education?: No THRIVE Score: 0 AUDIT C Alcohol Use Questionnaire (AUDIT-C) 1. How often do you have a drink containing alcohol?: Monthly or less 2. How many drinks containing alcohol do you have on a typical day when you are drinking?: 1 or 2 3. How often do you have six or more drinks on one occasion?: Less than monthly Total Score: 2 AJIT-7 AMB Questionnaire AJIT-7 Date AJIT - 7 assessed: 08/14/24 Feeling nervous, anxious, or on edge: 0 = Not at all Not being able to stop or control worryin = Not at all Worrying too much about different things: 0 = Not at all Trouble relaxin = Not at all Being so restless that it is hard to sit still: 0 = Not at all Becoming easily annoyed or irritable: 0 = Not at all Feeling afraid as if something awful might happen: 0 = Not at all Total AJIT-7 score (0-4 normal; 5-9 mild; 10-14 moderate; 15-21 severe): 0 Source: Developed by Drs. Felice Kingston, Irene Mack, Benjamin Sofia and colleagues, with an educational tigist from [employer]. Physical exam (Primary Care) Vital Signs: Last Vital Signs Temp 98 F 08/14/24 09:24 Pulse 75 08/14/24 09:24 BP 124/70 08/14/24 09:24 Pulse Ox 99 08/14/24 09:24 Oxygen Delivery Method Room Air 08/14/24 09:24 BMI result Body Mass Index 25.6 Tobacco/Smoking Status: Tobacco use Status Tobacco use date assessed 08/14/24 08/14/24 09:25 Patient Tobacco Use Status Never used Tobacco 08/14/24 09:25 e-Cigarette/Vaping Use Never Used 08/14/24 09:25 PHQ-9: PHQ-9 Score PHQ-9: Total score 0 08/14/24 09:48 Depression Screening Interpretation: Negative Thrive Assessment: Date of Thrive Assessment Date Thrive assessed 08/14/24 08/14/24 09:25 Coding Level of Care Code New Pt Level 4 (20174) Complex EM visit Add On G2211 Diagnoses Frequent stools K52.9 Change in bowel function R19.8 Type 2 diabetes mellitus with hyperglycemia, without long-term current use of insulin E11.65 Diabetes mellitus type: type 2 Diabetes 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 operator insulin use: without group home use Diabetes mellitus complication status: with hyperglycemia Primary hypertension I10 Hypertension type: primary hypertension Additional Codes PHQ-9 - 84909 - PHQ-9 Billing: Yes ([id number]) Assessment & Plan Assessment & Plan (1) Frequent stools: Code(s): K52.9 - Noninfective gastroenteritis and colitis, unspecified Category: Medical (2) Change in bowel function: Code(s): R19.8 - Other specified symptoms and signs involving the digestive system and abdomen Category: Medical (3) Diabetes: Code(s): E11.9 - Type 2 diabetes mellitus without complications Category: Medical Qualifiers: Diabetes mellitus type: type 2 Diabetes 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 operator insulin use: without ad terminal makeup operator use Diabetes mellitus complication status: with hyperglycemia Qualified Code(s): E11.65 - Type 2 diabetes mellitus with hyperglycemia (4) Hypertension: Code(s): I10 - Essential (primary) hypertension Category: Medical Qualifiers: Hypertension type: primary hypertension Qualified Code(s): I10 - Essential (primary) hypertension Plan 63 year old to establish care Past medical, surgical, & social reviewed 2+month history of bowel changes-frequent stools. Stool studies ordered. Refer GI Diabetes with hyperglycemia-increase trucility to 3mg weekly Orders: Orders Hemoglobin A1c Today E11.9 - Type 2 diabetes mellitus without complications, I10 - Essential (primary) hypertension, K52.9 - Noninfective gastroenteritis and colitis, unspecified TSH reflex Free T4 Today E11.9 - Type 2 diabetes mellitus without complications, I10 - Essential (primary) hypertension, K52.9 - Noninfective gastroenteritis and colitis, unspecified Comprehensive Met. Panel Today E11.9 - Type 2 diabetes mellitus without complications, I10 - Essential (primary) hypertension, K52.9 - Noninfective gastroenteritis and colitis, unspecified Giardia Ag Stool EIA Today E11.9 - Type 2 diabetes mellitus without complications, I10 - Essential (primary) hypertension, K52.9 - Noninfective gastroenteritis and colitis, unspecified H pylori Ag Stool Today E11.9 - Type 2 diabetes mellitus without complications, I10 - Essential (primary) hypertension, K52.9 - Noninfective gastroenteritis and colitis, unspecified Ova and Parasite Today E11.9 - Type 2 diabetes mellitus without complications, I10 - Essential (primary) hypertension, K52.9 - Noninfective gastroenteritis and colitis, unspecified Calprotectin, Fecal Today E11.9 - Type 2 diabetes mellitus without complications, I10 - Essential (primary) hypertension, K52.9 - Noninfective gastroenteritis and colitis, unspecified Pancreatic Elastase-1 Today E11.9 - Type 2 diabetes mellitus without complications, I10 - Essential (primary) hypertension, K52.9 - Noninfective gastroenteritis and colitis, unspecified Referrals Gastroenterology Referral E11.9 - Type 2 diabetes mellitus without complications, I10 - Essential (primary) hypertension, K52.9 - Noninfective gastroenteritis and colitis, unspecified, R19.8 - Other specified symptoms and signs involving the digestive system and abdomen Medications: New Trulicity (dulaglutide) 3 mg (0.5 mL) subcut QWEEK 6 mL 3RF NS E11.9 - Type 2 diabetes mellitus without complications, I10 - Essential (primary) hypertension, K52.9 - Noninfective gastroenteritis and colitis, unspecified, R19.8 - Other specified symptoms and signs involving the digestive system and abdomen
[2024-08-14 09:24] VITALS: BP 124/70; PULSE 75; TEMP 36.6; O2SAT 99; BMI 25.6
--- OUTSIDE RECORDS SUMMARY | 2024-08-14 09:49 | XMS_ITS ---
Author Organization Felice Diego III, MD Address [address] [place] [address] [place] [address] Care Team Providers Care Retail Delivery Driver Name Role Phone Alistair Bernal MD Primary Care Provider UnavailFelice Valenzuela Unavailable [phone] Katharine FITZGERALD, [place] Unavailable Unavailable REASON FOR VISIT Message Encounters Encounter Location Date Provider Diagnosis Felice Diego III, MD [address] [place] [address] [place] [address] 04/01/2024 Felice Diego Plan Of Treatment No Information Progress Notes * FILOMENA GARCIAOB:1960 (63 yo F)Acc No.[id number]:04/01/2024 Patient:?GARCIAWINSTONBREEZY :1960???Age:63 Y???Sex:Female Address: [place], [address] * true * Date:? Generated for Printi ng/Fasusanneg/eTransmitting on:?08/14/2024 09:49 AM EDT
--- OUTSIDE RECORDS SUMMARY | 2024-08-14 09:49 | XMS_ITS | Patient Health Record ---
Author Organization Felice Diego III, MD Address [address] [place] [address] [place] [address] Care Team Providers Care Nurse Head Name Role Phone Alistair Bernal MD Primary Care Provider UnavailFelice Valenzuela Unavailable [phone] Katharine FITZGERALD, [place] Unavailable Unavailable Allergies No Known Allergies Reason For Referral No Information Medications Medication SIG (Take, Route, Frequency, Duration) Notes Start Date End Date Status glipiZIDE 10 MG 1 tablet 30 minutes before breakfast Orally Once a day Active amLODIPine Besylate 10 MG 1 tablet Orall y Once a day Active cycloPHOSphamide 500 MG as directed Inje ction 990mg every 14 days days for 4 cycles 05/21/2019 Active Famotidine 20 MG/2ML 2 ml Intravenous 20 mg iv infusion prior to Paclitaxel chemotherapy 05/21/2019 Active diphenhydrAMINE HCl 50 MG/ML 1 ml as nee ded Injection 50mg iv infusion given prior to Paclitaxel chemotherapy x 4 cycles 05/21/2019 Active Anastrozole 1 MG TAKE 1 TABLET BY [facility] TH EVERY DAY for 90 Active DOXOrubicin HCl 50 MG as directed Intrav enous 99mgs iv infusion every 14 days x 4 cycles 05/21/2019 Active PACLitaxel 300 MG/50ML as directed Intra venous 289mg every 21 days for 4 cycles 05/21/2019 Active Trulicity 0.75 MG/0.5ML as directed Subcutaneous Active Lisinopril 20 MG 1 tablet Orally Once a day Active dexAMETHasone Sodium Phosphate 20 MG/5ML 5 ml Injection 20mg infusion every 14 days for 4 cycles then every 21 days for 4 cycles 05/21/2019 Active Ondansetron HCl 4 MG/2ML as directed Inj ection 16mg IV infusion every two weeks x 4 Cycles then Q 21 days x 4 cycles 05/21/2019 Active Social History Tobacco Use: Social History Observation Description Date Details (start date - stop date) Never Smoker NA - NA Tobacco Use/Smoking Question Answer Notes Patient is a nonsmoker Additional Findings: Tobacco Non-User Aggressive non-smoker Alcohol Screen Question Answer Notes Did you have a drink containing alcohol in the p ast year? No Points 0 Interpretation Negative Problems Problem Type SNOMED Code ICD Code Onset Dates Problem Status W/U Status Risk Notes Problem 94745103 Postmenopausal (Z78.0) Active confirmed Her last menstrual period was 3 years ago. She retains her ovaries and uterus intact. She has a history of benign uterine bleeding. Problem 03151689 Ureterolithiasis (N20.1) Active confirmed In March 2019 she developed a kidney stone obstructing the left ureter. At the UV junction which was removed and a stent was inserted. Problem 68159758 Essential hypertension (I10) Active confirmed Her blood pressure is stable today and no change in her regimen was needed. The value was 118/78. She will continue sodium restriction. Problem 330340931 Type 2 diabetes mellitus without complication, without long-term current use of insulin (E11.9) Active confirmed She will continue on her current therapy at this time. Her blood pressure was 110/70. No changes were necessary. Problem 077179504 Infiltrating ductal carcinoma of left breast (C50.912) Active confirmed She is doing very well on the anastrozole without any side effects. There is no sign of a new primary. There is no sign of recurrence. She is comfortable with mild left breast pain. She will continue on the adjuvant endocrine therapy with anastrozole for a full 5 years. Encounters Encounter Location Date Provider Diagnosis Felice Diego III, MD [address] [place] [address] [address] [place] [address] 04/01/2024 Felice Diego Plan Of Treatment Pending Test Test Name Order Date PROFILE, RANDOM (COMPREHENSIVE METABOLIC ) 05/16/2019 CBC w DIFF 05/16/2019 PROTHROMBIN TIME (PT, INR) 05/16/2019 PARTIAL THROMBOPLASTIN TIME (PTT) 2019 FOLLICLE STIMULATING HORMONE (FSH) 05/28 BONE DENSITY DEXA 05/29/2019 Echocardiogram 05/16/2019 PORTACATH INSERTION 05/16/2019 VITAMIN D 25-OH TOTAL 05/29/2019 Insurance Providers Payer Name Payer Address Payer Phone Subscriber Number Group Number Insured Name Patient Relationship to Insured Coverage Start Date Coverage End Date [address] [place] [phone] [id number] BREEZY GARCIA Self - patient is the insured Medical (General) History Medical History History ICD Code HTN (hypertension) I10 Diabetes mellitus E11.9 laparoscopic cholecystectomy for choleli thiasis history of sphincterotomy for common ruth e duct obstruction by stone postmenopausal uterine bleeding benign lesions of the eyelids last menstrual period 2016 [id number] twins ureterolithiasis March 2019, left invasive ductal carcinoma, J anuary 2019, ER+,FL+,HER2-, 2 positive nodes, extranodal extension Surgical History Surgery Date(Month/Year) Left breast Lumpectomy hysteroscopy, D&C, benign postmenopausal bleeding 08/2016 left ureteral stent, ureteroscopy, stone extraction 03/2019 colonoscopy, [facility], Dr. Mota, 1 tubular adenoma, 3 hyperplastic polyps 06/2015 excision benign lesion from eyelid 2012 excision benign lesion from eyelid 2011 ERCP with sphincterotomy, co mmon bile duct stone extraction, Dr. Talamantes, [facility] 05/2005 laparoscopic cholecystectomy for choleli thiasis, Dr. Zavala 05/2005 Hospitalization History Reason Date(Month/Year) Child lumpectomy 2020 ureterolithiasis 2020
--- OUTSIDE RECORDS SUMMARY | 2024-08-14 09:49 | XMS_ITS | Patient Health Record ---
Author Organization [facility] Address [address] [place] [address] Care Team Providers Care Labor Trainer Name Role Phone Alistair Bernal MD Primary Care Provider Larry Barrientos Jr Unavailable Allergies No Known Allergies Reason For Referral No Information Medications Medication SIG (Take, Route, Frequency, Duration) Notes Start Date End Date Status glipiZIDE 5 MG Orally Activ e metFORMIN HCl Active amLODIPine Besylate 10 MG Orally Active Lisinopril 10 MG Orally Act nayla MiraLax (colon prep) 17 GM/SCOOP mixed with Gatorade or Crystal Light Orally begin at 5:00 p.m. the day before the procedure for 1 day 07/27/2021 Active Colyte with Flavor Packs 240 GM As directed Orally Over the specified time. 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) use of oral hypoglycemic drugs (Z79.84) Active confirmed Plan Of Treatment Future Test Test Name Order Date COLONOSCOPY 05/06/2015 COLONOSCOPY 07/27/2021 Insurance Providers Payer Name Payer Address Payer Phone Subscriber Number Group Number Insured Name Patient Relationship to Insured Coverage Start Date Coverage End Date [facility] [address] [facility] [place] [phone] [id number] BREEZY GARCIA Self - patient is the insured Medical (General) History Medical History History ICD Code ERCP with sphincterotomy 06-19-2005 diabetes hypertension Colonoscopy 07/09, tubular adenoma x1, fi ve-year followup Left breast cancer, radiation therapy Surgical History Surgery Date(Month/Year) tubal ligation gall stones
== END 2024-08-14 10:06 | disposition home or self-care (01) ==
LOC: HO.HMCHD 09:31
PROVIDERS: PCP Internal Medicine; Visit Provider Internal Medicine
DX: K52.9 Noninfective gastroenteritis and colitis, unspecified (principal); R19.8 Other specified symptoms and signs involving the digestive system and abdomen; E11.65 Type 2 diabetes mellitus with hyperglycemia; I10 Essential (primary) hypertension

== ENCOUNTER 2024-08-25 10:50 | Outpatient (REF) | payer OTHER, SELFPAY ==
--- OUTSIDE RECORDS SUMMARY | 2024-08-26 12:28 | XMS_ITS | Patient Health Record ---
Author Organization [facility] Address [address] [place] [address] Care Team Providers Care Front End Architect Name Role Phone BEBETO BALDWIN Primary Care Provider Larry Heart Jr Allergies No Known Allergies Reason For Referral [...] Problem Status W/U Status Risk Notes Problem 842607561 Colon cancer screening (Z12.11) Active confirmed Problem 383529283 Encounter for long-term (current) use of other high-risk medications (Z79.899) Active confirmed Problem 918666204 Encounter for other preprocedural examination (Z01.818) Active confirmed Problem 906724263682775 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 (Z79.84) Active confirmed Plan Of Treatment Future Test Test Name Order Date COLONOSCOPY 05/06/2015 COLONOSCOPY 07/27/2021 Next Appt Details Provider Name:Larry peters Jr, 11/05/2024 11:20:00 AM, [address], [address], [place], [address], Insurance Providers Payer Name Payer Address Payer Phone Subscriber Number Group Number Insured Name Patient Relationship to Insured Coverage Start Date Coverage End Date [facility] [address] [place] [phone] [id number] BREEZY GARCIA Self - patient is the insured Medical (General) History Medical History History ICD Code ERCP with sphincterotomy 06-19-2005 diabetes hypertension Colonoscopy 07/09, tubular adenoma x1, fi ve-year followup Left breast cancer, radiation therapy Surgical History Surgery Date(Month/Year) tubal ligation gall stones
[2024-09-01 16:49] LABS: Pancreatic Elastase-1 >800 mcg/g (>200)
[2024-09-02 19:53] LABS: Calprotectin, Fecal 11 mcg/g
== END 2024-08-25 10:51 | disposition home or self-care (01) ==
LOC: HO.LNP 10:50
PROVIDERS: Visit Provider Internal Medicine
DX: K52.9 Noninfective gastroenteritis and colitis, unspecified (principal); I10 Essential (primary) hypertension; E11.9 Type 2 diabetes mellitus without complications
CPT/HCPCS: 82656; 83993; 87177; 87209; 87329; 87338

== ENCOUNTER 2024-08-28 07:59 | Outpatient (REF) | payer OTHER, SELFPAY ==
[2024-09-02 12:51] LABS: HPV Genotype 16 Negative (Negative); HPV Genotype 18 Negative (Negative); HPV High Risk Negative (Negative)
== END 2024-08-28 08:00 | disposition home or self-care (01) ==
LOC: HO.LNP 07:59
PROVIDERS: PCP Internal Medicine; Visit Provider Advanced Practice Midwife
DX: Z01.419 Encounter for gynecological examination (general) (routine) without abnormal findings (principal)
CPT/HCPCS: 87626; 88175

== ENCOUNTER 2024-08-28 07:59 | Outpatient (AMB) | payer OTHER, SELFPAY ==
--- OUTSIDE RECORDS SUMMARY | 2024-08-28 08:01 | XMS_ITS | Patient Health Record ---
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 drugs (Z79.84) Active confirmed Plan Of Treatment Future Test Test Name Order Date COLONOSCOPY 05/06/2015 COLONOSCOPY 07/27/2021 Next Appt Details Provider Name:Larry peters Jr, 11/05/2024 11:20:00 AM, [address] [facility] [address] [facility], [address], [place], [address], Insurance Providers Payer Name Payer Address Payer Phone Subscriber Number Group Number Insured Name Patient Relationship to Insured Coverage Start Date Coverage End Date [facility] [address] [place] [phone] [id number] BREEZY GARCIA Self - patient is the insured Medical (General) History Medical History History ICD Code ERCP with sphincterotomy 06-19-2005 diabetes hypertension Colonoscopy 07/09, tubular adenoma x1, fi ve-year followup Left breast cancer, radiation therapy Surgical History Surgery Date(Month/Year) tubal ligation gall stones
--- NOTE | 2024-08-28 08:02 | A.OFFVIS_ITS ---
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 She is doing well with no business analyst project manager concerns. Currently sexually active. Denies any vaginal dryness or irritation. Uses Replens moisturizer. Attempting to eat a healthy diet with calcium and vitamin D, currently having GI symptoms and not eating well, and stays active with exercise. Last pap smear; 2019, negative. History of LEEP in 1992. Last mammogram; 02/2024. Status post left breast cancer, has follow up with Dr. Urban regularly. Colonoscopy is UTD. [facility] Medical History Diabetes Hypertension Invasive ductal carcinoma of left breast Surgical History History of loop electrical excision procedure (LEEP) History of tubal ligation Hx of colonoscopy (~06/30/15) History of ERCP Hx of gallstones Hx of lumpectomy Family History Father HTN (hypertension) Diabetes mellitus Mother Diabetes mellitus HTN (hypertension) Social History Housing: House Alcohol intake: former Patient Tobacco Use Status: Never used Tobacco e-Cigarette/Vaping Use: Never Used Current occupational status: retired Sexual orientation: Straight/Heterosexual Gender identity: Female Cognitive needs: No Hearing needs: No Vision needs: Yes (rx glasses) Female Reproductive History Menstrual Age of Menarche: 13 control method: permanent sterilization Permanent Sterilization: BTL Total pregnancies: 3 Full term: 2 Number of Living Children: 3 Ab spontaneous: 1 Multiple births: 1 Date of last pap smear: 09/25/19 (neg pap and hpv) History of abnormal pap smear: Yes ( leep robert 1) Date of Mammogram: 03/17/24 (Birad 2) History of abnormal mammogram: Yes (hx breast ca) Review of Systems Const All systems reviewed & are unremarkable except as noted in HPI and below Reports as per HPI Eyes Reports no additional complaints ENT Reports no additional complaints Card Reports no additional complaints Resp Reports no additional complaints GI Reports as per HPI and Reports no additional complaints Reports as per HPI Musc Reports no additional complaints Skin/Breast Reports as per HPI Neuro Reports no additional complaints Psych Reports no additional complaints Endo Reports no additional complaints Segundo/Lymph Reports no additional complaints Aller/Immun Reports no additional complaints Physical Exam Vital Signs: Last Vital Signs BP 110/70 08/28/24 08:04 BMI result Body Mass Index 24.8 Const General: cooperative, healthy appearing, no acute distress, well developed and alert Orientation/consciousness: patient oriented x3 HEENT Head: Yes normal to inspection Eyes General: appearance normal, both eyes and all related structures Neck Neck: Yes normal visual inspection Thyroid: Thyroid normal Chest Other: Left breast postsurgical scarring Chest palpation & inspection: normal inspection of the chest and other (no puckering, dimpling, peau de orange, retraction, discharge, masses) Breast/axilla inspection: normal inspection of the breasts Breast/axilla palpation: normal palpation of the breasts Resp Effort & Inspection: normal respiratory effort GI Inspection: Yes normal to inspection Palpation (GI): Soft to palpation Rectal Exam - Female: deferred General: Yes bladder normal to palpation External Female Exam: normal external appearance and normal appearance of the urethra Speculum Exam - Vagina: normal appearance of the vagina, normal palpation, normal vaginal discharge and vagina atrophic Speculum Exam - Cervix: normal appearance of the cervix, normal palpation and Other cervical findings present (Atrophic changes bled slightly with Pap) Bimanual exam- vagina & uterus: normal bimanual exam, normal palpation, uterine size normal, bladder normal to palpation, normal palpation and non-tender Bimanual Exam- Adnexa, other: no masses Skin General skin exam: no rashes or lesions noted Rashes: no rashes Neuro General: patient oriented x3 Cognition (Neuro): normal cognition Extrem General: Yes normal to inspection Psych Attitude: cooperative Thought process: Normal thought process present Assessment & Plan Assessment & Plan (1) Encounter for well woman exam with routine gynecological exam: Code(s): Z01.419 - Encounter for gynecological examination (general) (routine) without abnormal findings Category: Medical Plan Discussed: Current recommendations for pap smears per ASCCP guidelines. Breast awareness, periodic self breast exams and yearly mammogram. Maintain a healthy lifestyle, well balanced diet including Calcium 1,200 mg and Vitamin D 600 IU daily, and routine exercise. Contact the office with any postmenopausal bleeding. Patient verbalizes understanding and agrees to the plan of care. She was given opportunity to ask questions and all questions were answered to the best of my ability. RTO in 1 year for annual business analyst project manager exam. This note is constructed using voice recognition software. While every effort has been made to ensure accuracy, coating mixer supervisor errors may have been included. Orders: Orders HPV High risk Today Z01.419 - Encounter for gynecological examination (general) (routine) without abnormal findings Pap Smear Today Z01.419 - Encounter for gynecological examination (general) (routine) without abnormal findings Coding Level of Care Code Est Pt Prev Care 40-64y(54410) Diagnoses Encounter for well woman exam with routine gynecological exam Z01.419
[2024-08-28 08:04] VITALS: BP 110/70; BMI 24.8
== END 2024-08-28 08:38 | disposition home or self-care (01) ==
LOC: HO.HWS 07:59
PROVIDERS: PCP Internal Medicine; Visit Provider Advanced Practice Midwife
DX: Z01.419 Encounter for gynecological examination (general) (routine) without abnormal findings (principal)
CPT/HCPCS: 99396; 99459

== ENCOUNTER 2024-12-08 08:42 | Outpatient (REF) | payer OTHER, SELFPAY ==
--- OUTSIDE RECORDS SUMMARY | 2024-04-01 06:59 | XMS_ITS ---
Author Organization Felice Diego III, MD Address [address] [place] [address] [place] [address] Care Team Providers Care Medical Billing Representative Name Role Phone Alistair Bernal MD Primary Care Provider UnavailFelice Valenzuela Unavailable [phone] Katharine FITZGERALD, Mague Unavailable Unavailable REASON FOR VISIT Message Encounters Encounter Location Date Provider Diagnosis Felice Diego III, MD [address] [place] [address] [place] [address] 04/01/2024 Felice Diego Plan Of Treatment No Information Progress Notes * FILOMENA GARCIAOB:1960 (63 yo F)Acc No.[id number]:04/01/2024 Patient: BREEZY HODGE :1960 A ge:63 Y S ex:Female Address: [place], [address] * true * Date: Generated for Printi ng/Faxing/eTransmitting on: 0 12/08/2024 09:56 AM EDT
--- OUTSIDE RECORDS SUMMARY | 2024-11-05 07:20 | XMS_ITS ---
Author Organization [facility] Address [address] [place] [address] Care Team Providers Care Faith Healer Name Role Phone Gemma Erazo, Yasmine Primary Care Provider Larry Ochoa Jr REASON FOR VISIT colitis Encounters Encounter Location Date Provider Diagnosis [facility] [address] [facility] [address] [place] [phone] 11/05/2024 Larry Mota Jr Plan Of Treatment No Information Progress Notes * GARCIAGLENN CRAWLEYSTEPHANOB:1960 (64 yo F)Acc No.[id number]:11/05/2024 Progress Notes Patient: BREEZY HODGE Provider: Manpreet Mota MD :1960 A ge:64 Y S ex:Female Date:11/05/2024 Address:[address] [place], [place] [phone] Pcp:Yasmine Menendez M.D. Subjective: * Chief Complaints: * 1 . Colitis. * Medical History: Objective: * Vitals: Assessment: Plan: * Treatment: * * The named appointment provid er may or may not be the originator of this progress note, and it is not deemed complete until electronically signed by the appointment provider. Sign off status: Pending * Provider: Manpreet Mota MD Date: 0 11/05/2024 Generated for Printi ng/Faxing/eTransmitting on: 0 12/08/2024 09:56 AM EDT
[2024-12-08 09:55] LABS: Hemoglobin A1C 250.4763 umol/L; Total Hemoglobin (HGBA1C) 3611.8484 umol/L
--- OUTSIDE RECORDS SUMMARY | 2024-12-08 09:56 | XMS_ITS | Patient Health Record ---
Author Organization Felice Diego III, MD Address [address] [place] [address] [place] [address] Care Team Providers Care Analytical Tech Name Role Phone Alistair Bernal MD Primary Care Provider UnavailFelice Valenzuela Unavailable [phone] Katharine FITZGERALD, Mague Unavailable Unavailable Allergies No [...] Problem Status W/U Status Risk Notes Problem 20442148 Postmenopausal (Z78.0) Active confirmed Her last menstrual period was 3 years ago. She retains her ovaries and uterus intact. She has a history of benign uterine bleeding. Problem 60683092 Ureterolithiasis (N20.1) Active confirmed In March 2019 she developed a kidney stone obstructing the left ureter. At the UV junction which was removed and a stent was inserted. Problem 67118969 Essential hypertension (I10) Active confirmed Her blood pressure is stable today and no change in her regimen was needed. The value was 118/78. She will continue sodium restriction. Problem 053076402 Type 2 diabetes mellitus without complication, without long-term current use of insulin (E11.9) Active confirmed She will continue on her current therapy at this time. Her blood pressure was 110/70. No changes were necessary. Problem 642999636 Infiltrating ductal carcinoma of left breast (C50.912) [...] Date Provider Diagnosis Felice Diego III, MD [address] [place] [address] [address] [place] [address] 04/01/2024 Felice Diego Plan Of Treatment Pending [...] Insured Coverage Start Date Coverage End Date [address] [place] [phone] [id number] BREEZY GARICA Self - patient is the insured Medical (General) History Medical History History ICD Code HTN (hypertension) I10 Diabetes mellitus E11.9 laparoscopic cholecystectomy for choleli thiasis history of sphincterotomy for common ruth e duct obstruction by stone postmenopausal uterine bleeding benign lesions of the eyelids last menstrual period 2016 [id number] twins ureterolithiasis March 2019, left invasive ductal carcinoma, J anuary 2019, ER+,DE+,HER2-, 2 positive nodes, extranodal extension Surgical History Surgery Date(Month/Year) Left breast Lumpectomy hysteroscopy, D&C, benign postmenopausal bleeding 08/2016 left ureteral stent, ureteroscopy, stone extraction 03/2019 colonoscopy, [facility], Dr. Mota, 1 tubular adenoma, 3 hyperplastic polyps 06/2015 excision benign lesion from eyelid 2012 excision benign lesion from eyelid 2011 ERCP with sphincterotomy, co mmon bile duct stone extraction, Dr. Talamantes, [facility] 05/2005 laparoscopic cholecystectomy for choleli thiasis, Dr. Zavala 05/2005 Hospitalization History Reason Date(Month/Year) Child lumpectomy 2020 ureterolithiasis 2020
--- OUTSIDE RECORDS SUMMARY | 2024-12-08 09:56 | XMS_ITS | Clinical Summary ---
Author Organization [facility] Address [address] [place] [phone] Phone Care Team Providers Care Ic Designer Custom Name Role Phone Alistair Bernal MD Primary Care Provider Self-Referred, Patient Unavailable Unavailab Felice Claudio MD Unavailable [phone] Allergies No known active allergies Medications amLODIPine (NORVASC) 5 MG tablet Take by mouth daily. Active lisinopriL (PRINIVIL,ZESTRI L) 2.5 MG tablet Take by mouth daily. Active glipiZIDE (GLUCOTROL) 5 MG tablet Take by mouth 2 (two) times a day before meals. Active DULAGLUTIDE SUBQ Inject under the skin. Active Active Problems Problem Noted Date Diagnosed Date Malignant neoplasm of overla pping sites of left breast in female, estrogen receptor positive 05/23/2019 Cancer Staging:Pathologic:Stage IA(pT1c, pN1a(sn), cM0, G2, ER: Positive, IA: Positive, HER2: Negative, Oncotype DX score: 20) - Unsigned Social History Tobacco Use Types Packs/Day Years Used Date Smoking Tobacco: Never Alcohol Use Standard Drinks/Week Comments Not Currently 0 (1 standard drink = 0.6 oz pur e alcohol) Education Answer Date Recorded Are you interested in more education? Not on marce e 07/21/2022 Are you concerned about learning? Not on file 07/21/2022 No 07/21/2022 No 07/21/2022 Digital Access Answer Date Recorded No 08/19/2022 No 08/19/2022 No 08/19/2022 Reliable internet access at home? Not on file 08/19/2022 Device with a working camera? Not on file Comments No Sex and Gender Information Value Date Recorded Sex Assigned at Not on file Legal Sex Female 8:57 AM EST Gender Identity Not on file Sexual Orientation Not on file Last Filed Vital Signs Vital Sign Reading Time Taken Comments Blood Pressure 145/87 05/22/2019 2:13 PM EST Pulse 102 05/22/2019 2:13 PM EST Temperature 36.7 C (98 F) 05/22/2019 2:13 PM EST Respiratory Rate 16 05/22/2019 2:13 PM EST Oxygen Saturation 100% 05/22/2019 2:13 PM EST Inhaled Oxygen Concentration - - Weight 59.6 kg (131 lb 6.3 oz) 05/22/2019 2:13 P M EST dfci Height 158.8 cm (5' 2.52 ) 05/22/2019 2:13 PM ES T dfci Body Mass Index 23.63 05/22/2019 2:13 PM EST Plan of Treatment Health Maintenance Due Date Last Done Comments Adult Td,Tdap Booster 1960 CREATININE LEVEL 1960 LIPID PANEL 1960 POTASSIUM LEVEL 1960 DEPRESSION SCREENING 1972 HEPATITIS C SCREENING 1978 HIV ONE-TIME SCREENING (18-6 5 YEARS) 1978 PNEUMOCOCCAL VACCINES (50+ y ears) (1 of 2 - PCV) 09/28/1979 ZOSTER VACCINES (1 of 2) 09/28/1979 PAP SMEAR 1981 SMOKING STATUS SCREENING (On ce After 26 Yrs) 1986 MAMMOGRAM 2000 COLOGUARD 2005 COLONOSCOPY 2005 COLORECTAL CANCER SCREENING 2005 FIT TEST 2005 FOBT 2005 SIGMOIDOSCOPY 2005 VIRTUAL COLONOSCOPY 2005 INFLUENZA VACCINE (#1) 2024 COVID-19 VACCINE (2 - 2024-2 6 season) 2024 06/08/2020 RSV VACCINE (1 - 1-dose 75+ series) 09/28/2035 HEPATITIS A VACCINES Aged Out No long er eligible based on patient's age to complete this topic HIB VACCINES Aged Out No longer eligi ble based on patient's age to complete this topic MENINGOCOCCAL VACCINES (ACWY) Aged Out No longer eligible based on patient's age to complete this topic MENINGOCOCCAL VACCINES (B) Aged Out N o longer eligible based on patient's age to complete this topic Medical Devices Not on file Care Teams Ic Designer Custom Relationship Specialty Start Date End Date Alistair Bernal MD [address] [place] [address] [place] [address] PCP - General Internal Medicine 05/22/19 Self-Referred, Patient 05/22/19 DiegoFelice boss MD [address] [place] [id number] Medical Oncology 05/22/19 Additional Source Comments The information contained in this document represents components of the legal health record. It is not the complete legal health record.[facility]
--- OUTSIDE RECORDS SUMMARY | 2024-12-08 09:56 | XMS_ITS | Patient Health Record ---
Author Organization [facility] Address [address] [place] [address] Care Team Providers Care Terminal Carman Name Role Phone Yasmine Menendez M.D. Primary Care Provider Unavail Larry Cotton Jr Unavailable Allergies No Known Allergies Reason For Referral No Information Medications Medication SIG (Take, Route, Fr equency, Duration) Notes Start Date End Date Status glipiZIDE 5 MG Orally Activ e amLODIPine Besylate 10 MG Orally Active Lisinopril 10 MG Orally Act nayla Trulicity 1.5 MG/0.5ML INJECT 1.5 MG SUB CUTANEOUSLY ONCE A WEEK Subcutaneous for 84 Days Active Immunizations Vaccine Route Administration Date Status Comme nts Influenza Unknown 01/12/2021 Administered Problems Problem Type SNOMED Code ICD Code Onset Dates Problem Status W/U Status Risk Notes Problem 266628593 Colon cancer screening (Z12.11) Active confirmed Problem 820428181 Encounter for long-term (current) use of other high-risk medications (Z79.899) Active confirmed Problem 564792279 Encounter for other preprocedural examination (Z01.818) Active confirmed Problem [id number] half-way (current) use of oral hypoglycemic drugs (Z79.84) Active confirmed Vital Signs Blood pressure diastolic 77 mm Hg 09/04/2024 Height 62.5 in 09/04/2024 Blood pressure systolic 111 mm Hg 09/04/2024 Weight 139 lbs 09/04/2024 BMI 25.02 kg/m2 09/04/2024 Encounters Encounter Location Date Provider Diagnosis [facility] [address] [place] [address] 09/04/2024 Larry Mota Jr Change in bowel habit R19.4 [facility] [address] [place] [address] 09/02/2024 Larry Mota Jr Assessments Encounter Date Diagnosis (ICD Code) Assessment Notes Treatment Notes Treatment Clinical Notes Section Notes 09/04/2024 Change in bowel habit (ICD-10 - R19.4) We discussed her symptoms today. These appear consistent with the irritable bowel syndrome mainly with diarrhea predominance although possibly with a component of constipation. There are no recent medication adjustments, food ingestions, or travel that will explain this. Stool testing that has been done has been negative including calprotectin. We reviewed this today. She will try Imodium on a regular basis and let us know how she is doing in a month. If her symptoms persist, colonoscopy can be arranged. We discussed this today. Plan Of Treatment Future Test Test Name Order Date COLONOSCOPY 05/06/2015 COLONOSCOPY 07/27/2021 Insurance Providers Payer Name Payer Address Payer Phone Subscriber Number Group Number Insured Name Patient Relationship to Insured Coverage Start Date Coverage End Date [facility] [address] [facility] [phone] [id number] BREEZY GARCIA Self - patient is the insured Medical (General) History Medical History History ICD Code ERCP with sphincterotomy 06-19-2005 diabetes hypertension Colonoscopy 09/14, tubular adenoma, 5-yea r follow-up Left breast cancer, radiation therapy Surgical History Surgery Date(Month/Year) gall stones tubal ligation
[2024-12-08 10:04] LABS: Microalbum/Creatinine Ratio Ur 12.6 ug/mg cr (<30)
[2024-12-08 10:11] LABS: Anion Gap 13 (12-20); Blood Urea Nitrogen 14 mg/dL (9-16); Calcium 9.5 mg/dL (8.4-10.2); Carbon Dioxide 25 mmol/L (22-29); Chloride 104 mmol/L (96-108); Cholesterol 171 mg/dL (<200); Estimated Glomerular Filt Rate > 60; HDL Cholesterol 44 mg/dL (>40); Potassium 3.8 mmol/L (3.3-5.1); Sodium 138 mmol/L (135-145); Triglycerides 219 mg/dL (<150)
== END 2024-12-08 08:43 | disposition home or self-care (01) ==
LOC: HO.LAB 08:42
PROVIDERS: PCP Physician Assistant; Visit Provider Physician Assistant
DX: E11.65 Type 2 diabetes mellitus with hyperglycemia (principal); I10 Essential (primary) hypertension
CPT/HCPCS: 36415; 80048; 80061; 82043; 82570; 83036

== ENCOUNTER 2024-12-12 08:47 | Outpatient (AMB) | payer OTHER, SELFPAY ==
--- NOTE | 2024-12-12 08:48 | A.OFFPC_ITS ---
Vital Signs 12/12/24 08:51 12/12/24 09:11 Height 5 ft 2.5 in Weight 63.645 kg BMI 25.3 BP 112/50 L Respiration 14 Pulse 44 L 87 Pulse Source Pulse Oximeter Temp 97.7 F Temp Source Temporal Artery Scan Pulse Oximetry (%) 99 Oxygen Delivery Method Room Air Intake Visit Reasons: 1 month f/u labs prior Class 1 Owner Operator Required: No Accompanied by: Self / Same As Patient Allergies No Known Allergies (No Known Allergies*) Allergy (Verified 12/12/24 08:49) Medication List - Last Reconciled 12/12/24 by LAURIE Romero amlodipine 5 mg PO DAILY glipizide ER 10 mg PO BID lisinopril 10 mg PO DAILY Trulicity (dulaglutide) 3 mg (0.5 mL) subcut QWEEK NS Tobacco use date assessed: 08/14/24 Dental Screening Dental Screen Date: 08/14/24 HPI HPI Comments History of Present Illness Details The patient is a 63 year old female with a past medical history of diabetes, hypertension, breast cancer, kidney stones, OA hands, presenting for follow up Type 2 diabetes- On glipizide, trulicity increased go 3mg weekly (started 11/11). Did not tolerate mounjaro, jardiance. Last A1C 8.5%. Compliant with diabetic diet overall. Veggie omelet breakfast, tuna or salad at lunch. Not eating much at night. Very occ simple sugars. Occ snack at night. Fasting glucose levels 182- 250. Hypertension- on lisinopril, norvasc. Blood pressure in the office 112/50 Breast cancer: UTD with surgery. diation, s/p lumpectomy, L breast. Elevated liver enzymes: Total bilirubin 1.4, AST 37, ALT 57, alk-phos 130 Concerns: None Health maintenance: Mammo 02/2024 Colonoscopy 08/2022 ROS: General: No fevers, malaise, unintentional weight loss HEENT: No blurred vision, diplopia. No sore throat, nasal congestion, rhinorrhea, sinus pain, ear pain Cardiovascular: No chest pain, palpitations, or leg edema Respiratory: No shortness of breath, wheezing, cough GI: No abdominal pain, nausea, vomiting, diarrhea, constipation, melena, hematochezia : No dysuria, hematuria, increased urinary frequency, decreased urinary output MSK: No myalgia, back pain Neuro: No headaches, weakness, paresthesias Skin: No rashes or lesions EXAM: Constitutional - Awake and Alert, No apparent distress Eyes - PERRL Cardiovascular - S1S2, RRR, No edema Respiratory - Normal lung expansion, Normal respiratory effort, No respiratory distress, CTA bilaterally Extremities - no calf tenderness bilaterally, no swelling Skin - Warm/Dry Neurological - Alert & oriented x3 Psychological - Appropriate affect PFSH Medical History (Updated 12/12/24 @ 09:13 by LAURIE Romero) Elevated liver enzymes Type 2 diabetes mellitus Hypertension Invasive ductal carcinoma of left breast Surgical History (Updated 12/10/24 @ 16:46 by Qiun Robertson) History of loop electrical excision procedure (LEEP) History of tubal ligation Hx of colonoscopy (~09/02/21) History of ERCP Hx of gallstones Hx of lumpectomy Family History Father HTN (hypertension) Diabetes mellitus Mother Diabetes mellitus HTN (hypertension) Social History Housing: House Alcohol intake: former Patient Tobacco Use Status: Never used Tobacco e-Cigarette/Vaping Use: Never Used Current occupational status: retired Sexual orientation: Straight/Heterosexual Gender identity: Female Cognitive needs: No Hearing needs: No Vision needs: Yes (rx glasses) Female Reproductive History Menstrual Age of Menarche: 13 Questionnaire Thrive Questionnaire Date Thrive assessed: 08/14/24 AJIT-7 AMB Questionnaire AJIT-7 Date AJIT - 7 assessed: 08/14/24 Source: Developed by Drs. Felice Kingston, Irene Mack, Benjamin Sofia and colleagues, with an educational tigist from [employer]. Physical exam (Primary Care) Vital Signs: Last Vital Signs Temp 97.7 F 12/12/24 08:51 Pulse 87 12/12/24 09:11 Resp 14 12/12/24 08:51 BP 112/50 L 12/12/24 08:51 Pulse Ox 99 12/12/24 08:51 Oxygen Delivery Method Room Air 12/12/24 08:51 BMI result Body Mass Index 25.3 Tobacco/Smoking Status: Tobacco use Status Tobacco use date assessed 08/14/24 12/12/24 08:54 Patient Tobacco Use Status Never used Tobacco 12/12/24 08:54 e-Cigarette/Vaping Use Never Used 12/12/24 08:54 Thrive Assessment: Date of Thrive Assessment Date Thrive assessed 08/14/24 12/12/24 08:54 Coding Level of Care Code Est Pt Level 4 (35606) Complex EM visit Add On G2211 Diagnoses Type 2 diabetes mellitus E11.9 Primary hypertension I10 Hypertension type: primary hypertension Invasive ductal carcinoma of left breast C50.912 Elevated liver enzymes R74.8 Assessment & Plan Assessment & Plan (1) Type 2 diabetes mellitus: Code(s): E11.9 - Type 2 diabetes mellitus without complications Category: Medical Plan: Uncontrolled with A1c 8.5%. Continue with diabetic diet and check fasting glucose levels daily which remain uncontrolled despite increase in Trulicity. Initiate metformin 500 mg ER twice daily. Counseled on side effects. We did discuss the possible need for basal insulin should A1c not be improving. Continue with annual eye exams (2) Hypertension: Code(s): I10 - Essential (primary) hypertension Category: Medical Qualifiers: Hypertension type: primary hypertension Qualified Code(s): I10 - Essential (primary) hypertension Plan: Controlled. Continue amlodipine 5 mg daily and lisinopril 10 mg daily. (3) Invasive ductal carcinoma of left breast: Code(s): C50.912 - Malignant neoplasm of unspecified site of left female breast Category: Medical Plan: Continue following with breast surgeon with annual mammograms (4) Elevated liver enzymes: Code(s): R74.8 - Abnormal levels of other serum enzymes Category: Medical Plan: Appear to be chronic. We will continue monitoring Plan Follow-up in the office in 3 months with labs completed prior to visit Orders: Orders Basic Metabolic Panel 3 Months E11.9 - Type 2 diabetes mellitus without complications, I10 - Essential (primary) hypertension, R74.8 - Abnormal levels of other serum enzymes Hemoglobin A1c 3 Months E11.9 - Type 2 diabetes mellitus without complications, I10 - Essential (primary) hypertension, R74.8 - Abnormal levels of other serum enzymes Liver Panel 3 Months E11.9 - Type 2 diabetes mellitus without complications, I10 - Essential (primary) hypertension, R74.8 - Abnormal levels of other serum enzymes Lipid Panel 3 Months E11.9 - Type 2 diabetes mellitus without complications, I10 - Essential (primary) hypertension, R74.8 - Abnormal levels of other serum enzymes Medications: New metformin ER (Fortamet) 500 mg PO BID 180 tabs 0RF
[2024-12-12 08:51] VITALS: BP 112/50; PULSE 44; RESP 14; TEMP 36.5; O2SAT 99; BMI 25.3
[2024-12-12 09:11] VITALS: PULSE 87
--- OUTSIDE RECORDS SUMMARY | 2024-12-12 09:27 | XMS_ITS | Clinical Summary ---
Author Organization [facility] Address [address] [place] [id number] Phone Care Team Providers Care Centrifugal Extractor Operator Name Role Phone Alistair Bernal MD Primary Care Provider Self-Referred, Patient Unavailable Unavailab Felice Claudio MD Unavailable [phone] Allergies No known active allergies Medications amLODIPine [...] Staging:Pathologic:Stage IA(pT1c, pN1a(sn), cM0, G2, ER: Positive, VA: Positive, HER2: Negative, Oncotype DX score: 20) [...] Medical Devices Not on file Care Teams Centrifugal Extractor Operator Relationship Specialty Start Date End Date Alistair Bernal MD [address] [place] [address] [place] [address] PCP - General Internal Medicine 05/22/19 Self-Referred, Patient 05/22/19 DiegoFelice boss MD [address] [place] [id number] Medical Oncology 05/22/19 Additional Source Comments The information contained in this document represents components of the legal health record. It is not the complete legal health record.[facility]
== END 2024-12-12 09:13 | disposition home or self-care (01) ==
LOC: HO.HMCHD 08:48
PROVIDERS: PCP Internal Medicine; Visit Provider Physician Assistant
DX: E11.9 Type 2 diabetes mellitus without complications (principal); I10 Essential (primary) hypertension; C50.912 Malignant neoplasm of unspecified site of left female breast; R74.8 Abnormal levels of other serum enzymes